=== PATIENT | female | born 1940 | race Caucasian/White ===

== ENCOUNTER 2017-05-16 09:00 | Inpatient (IN) ==
[2017-05-16] MEDS ORDERED: SODIUM CHLORIDE 0.9% 500 ML IV STA (09:52)
[2017-05-16 09:58] LABS: Basophils % 0.3 % (0.0-0.8); Eosinophils # 0.1 10*3/uL (0.0-0.87); Eosinophils % 0.7 % (0.00-10.9); Hematocrit 37.3 VOL% (35.7-47.0); Hemoglobin 11.9 GM/DL (12.0-16.0); Immature Granulocytes % 0.8 %; Immature Granulocytes Absolute 0.09 #; Lymphocytes % 8.9 % (21.3-54.2); Mean Corpuscular HGB Conc 31.9 GM/DL (32-36); Mean Corpuscular Hemoglobin 30 PG (27-34); Mean Corpuscular Volume 92.8 FL (87-102); Mean Platelet Volume 9.4 FL (9.6-12.0); Monocytes # 0.8 10*3/uL (0.11-0.8); Monocytes % 7.2 % (1.7-12.7); Neutrophils # 9.4 10*3/uL (1.4-7.4); Neutrophils % 82.1 % (38.7-73.9); Platelet Count 284 T/CUMM (130-400); Red Blood Count 4.02 MC/CUMM (3.8-5.5); Red Cell Distribution Width 13.5 % (9.3-17.3); White Blood Count 11.4 T/CUMM (4-12)
[2017-05-16 10:04] LABS: INR 1.1; PT Patient Result 11.2 SECS; Partial Thromboplastin Time 27.1 SECS (0-40)
[2017-05-16 10:10] LABS: Alanine Aminotransferase 18 U/L (13-56); Albumin 3.6 G/DL (3.4-5.0); Alkaline Phosphatase 63 U/L (45-117); Aspartate Amino Transferase 20 U/L (0-37); Bilirubin,Total < 0.39 MG/DL (0.2-1.0); Blood Urea Nitrogen 32 MG/DL (7-18); Calcium 8.5 MG/DL (8.5-10.1); Glucose 114 MG/DL (74-106); Osmolality,Calculated 277.1 MOS/KG (273-304); Potassium 3.7 MMOL/L (3.5-5.1); Sodium 135 MMOL/L (136-145); Total Protein 6.3 G/DL (6.4-8.3)
[2017-05-16 10:39] LABS: Apearance,Urine CLEAR (Clear); Bilirubin,Urine Negative (Negative); Blood, Urine Negative (Negative); Glucose,Urine (UA) Negative (Negative); Ketones,Urine Negative (Negative); Mucus,Urine Occasional /LPF (Occasional); Nitrite,Urine Negative (Negative); Protein,Urine Negative; RBC,Urine <1 /HPF (0-4); Urine Color Yellow (Yellow); Urine Specific Gravity 1.012 (1.001-1.035); Urine Urobilinogen < 2.0 EU/DL (0.2-1.0); WBC,Urine 1 /HPF (0-6)
[2017-05-16 10:45] LABS: Barbiturates Screen,Urine Negative (Negative); Benzodiazepines Screen,Urine Negative (Negative); Cannabinoid Screen,Urine Negative (Negative); Opiate Screen,Urine Positive (Negative); Phencyclidine Screen,Urine Negative (Negative)
[2017-05-16] MEDS ORDERED: ASPIRIN 300 MG SUPP RECTAL STA (10:57)
[2017-05-16] MEDS ORDERED: ASPIRIN 300 MG SUPP RECTAL ONE (11:05)
[2017-05-16] MEDS ORDERED: ZALEPLON 5 MG CAPSULE PO PRN (14:23)
[2017-05-16] MEDS: DEXTROSE 5% LACTATED RINGERS 1,000 ML IV SCH (18:59)
[2017-05-16] MEDS: ENOXAPARIN 30 MG/0.3 ML SYRINGE SUBCUT SCH (20:27)
[2017-05-17] MEDS: DEXTROSE 5% LACTATED RINGERS 1,000 ML IV SCH ×2 (05:58→16:03)
[2017-05-17 07:56] LABS: Calcium 8.2 MG/DL (8.5-10.1); Potassium 3.3 MMOL/L (3.5-5.1)
[2017-05-17] MEDS: PANTOPRAZOLE 40 MG TABLET PO SCH ×2 (08:59→20:53)
[2017-05-17] MEDS: buPROPion SR 100 MG TABLET PO SCH (08:59)
[2017-05-17] MEDS: CLOPIDOGREL 75 MG TABLET PO SCH (08:59)
[2017-05-17] MEDS ORDERED: clonazePAM 0.5 MG TABLET PO SCH ×2 (09:00)
[2017-05-17] MEDS ORDERED: ASPIRIN 325 MG TABLET PO SCH (09:00)
[2017-05-17] MEDS: VENLAFAXINE XR 75 MG CAPSULE PO SCH ×2 (09:00→20:52)
[2017-05-17] MEDS ORDERED: FERROUS SULFATE 325 MG TABLET PO SCH (09:00)
[2017-05-17] MEDS: CYANOCOBALAMIN 500 MCG TABLET PO SCH (09:00)
[2017-05-17] MEDS ORDERED: FOLIC ACID 1 MG TABLET PO SCH (09:00)
[2017-05-17] MEDS: predniSONE 10 MG TABLET PO SCH (09:38)
[2017-05-17] MEDS: predniSONE 20 MG TABLET PO SCH (09:38)
[2017-05-17] MEDS: PREGABALIN 100 MG CAPSULE PO SCH ×2 (09:38→20:52)
[2017-05-17 09:48] LABS: 25 Hydroxy Vitamin D Total 29.1 NG/ML
[2017-05-17] MEDS: FERROUS SULFATE 325 MG TABLET PO SCH (14:43)
[2017-05-17] MEDS: METHADONE 10 MG TABLET PO SCH ×2 (14:43→20:53)
[2017-05-17] MEDS: FOLIC ACID 1 MG TABLET PO SCH (14:43)
[2017-05-17] MEDS: clonazePAM 0.5 MG TABLET PO SCH ×2 (14:43→20:52)
[2017-05-17] MEDS: ENOXAPARIN 30 MG/0.3 ML SYRINGE SUBCUT SCH (20:53)
[2017-05-18] MEDS: VENLAFAXINE XR 75 MG CAPSULE PO SCH ×2 (09:27→21:44)
[2017-05-18] MEDS: METHADONE 10 MG TABLET PO SCH ×3 (09:28→21:54)
[2017-05-18] MEDS: CYANOCOBALAMIN 500 MCG TABLET PO SCH (09:28)
[2017-05-18] MEDS: CLOPIDOGREL 75 MG TABLET PO SCH (09:28)
[2017-05-18] MEDS: clonazePAM 0.5 MG TABLET PO SCH ×3 (09:28→21:44)
[2017-05-18] MEDS: predniSONE 10 MG TABLET PO SCH (09:28)
[2017-05-18] MEDS: PREGABALIN 100 MG CAPSULE PO SCH ×2 (09:28→21:44)
[2017-05-18] MEDS: buPROPion SR 100 MG TABLET PO SCH (09:28)
[2017-05-18] MEDS: PANTOPRAZOLE 40 MG TABLET PO SCH ×2 (09:28→21:44)
[2017-05-18] MEDS: FOLIC ACID 1 MG TABLET PO SCH (15:44)
[2017-05-18] MEDS: FERROUS SULFATE 325 MG TABLET PO SCH (15:44)
[2017-05-18] MEDS: ENOXAPARIN 30 MG/0.3 ML SYRINGE SUBCUT SCH (21:43)
[2017-05-19 10:18] LABS: Alanine Aminotransferase 15 U/L (13-56); Albumin 2.9 G/DL (3.4-5.0); Alkaline Phosphatase 57 U/L (45-117); Aspartate Amino Transferase 11 U/L (0-37); Bilirubin,Total < 0.39 MG/DL (0.2-1.0); Blood Urea Nitrogen 29 MG/DL (7-18); Calcium 7.8 MG/DL (8.5-10.1); Glucose 97 MG/DL (74-106); Osmolality,Calculated 286.3 MOS/KG (273-304); Potassium 3.5 MMOL/L (3.5-5.1); Sodium 141 MMOL/L (136-145); Total Protein 5.7 G/DL (6.4-8.3)
[2017-05-19] MEDS: CLOPIDOGREL 75 MG TABLET PO SCH (10:25)
[2017-05-19] MEDS: buPROPion SR 100 MG TABLET PO SCH (10:25)
[2017-05-19] MEDS: predniSONE 20 MG TABLET PO SCH (10:25)
[2017-05-19] MEDS: predniSONE 10 MG TABLET PO SCH (10:26)
[2017-05-19] MEDS: VENLAFAXINE XR 75 MG CAPSULE PO SCH ×2 (10:26→20:43)
[2017-05-19] MEDS: clonazePAM 0.5 MG TABLET PO SCH ×3 (10:26→20:43)
[2017-05-19] MEDS: CYANOCOBALAMIN 500 MCG TABLET PO SCH (10:26)
[2017-05-19] MEDS: PANTOPRAZOLE 40 MG TABLET PO SCH ×2 (10:26→20:43)
[2017-05-19] MEDS: PREGABALIN 100 MG CAPSULE PO SCH ×2 (10:26→20:42)
[2017-05-19] MEDS: METHADONE 10 MG TABLET PO SCH ×3 (10:40→20:43)
[2017-05-19] MEDS: FOLIC ACID 1 MG TABLET PO SCH (13:14)
[2017-05-19] MEDS: FERROUS SULFATE 325 MG TABLET PO SCH (13:14)
[2017-05-19] MEDS: ENOXAPARIN 30 MG/0.3 ML SYRINGE SUBCUT SCH (20:41)
[2017-05-20] MEDS: VENLAFAXINE XR 75 MG CAPSULE PO SCH ×2 (09:24→20:20)
[2017-05-20] MEDS: CLOPIDOGREL 75 MG TABLET PO SCH (09:24)
[2017-05-20] MEDS: CYANOCOBALAMIN 500 MCG TABLET PO SCH (09:24)
[2017-05-20] MEDS: clonazePAM 0.5 MG TABLET PO SCH ×3 (09:25→20:20)
[2017-05-20] MEDS: METHADONE 10 MG TABLET PO SCH ×3 (09:25→20:21)
[2017-05-20] MEDS: PANTOPRAZOLE 40 MG TABLET PO SCH ×2 (09:26→20:22)
[2017-05-20] MEDS: buPROPion SR 100 MG TABLET PO SCH (09:26)
[2017-05-20] MEDS: PREGABALIN 100 MG CAPSULE PO SCH ×2 (09:29→20:20)
[2017-05-20] MEDS: FOLIC ACID 1 MG TABLET PO SCH (14:15)
[2017-05-20] MEDS: FERROUS SULFATE 325 MG TABLET PO SCH (14:17)
[2017-05-20] MEDS ORDERED: ENOXAPARIN 40 MG/0.4 ML SYRINGE SUBCUT SCH (21:00)
[2017-05-21] MEDS: CLOPIDOGREL 75 MG TABLET PO SCH (09:26)
[2017-05-21] MEDS: PANTOPRAZOLE 40 MG TABLET PO SCH (09:26)
[2017-05-21] MEDS: clonazePAM 0.5 MG TABLET PO SCH (09:26)
[2017-05-21] MEDS: PREGABALIN 100 MG CAPSULE PO SCH (09:26)
[2017-05-21] MEDS: VENLAFAXINE XR 75 MG CAPSULE PO SCH (09:26)
[2017-05-21] MEDS: CYANOCOBALAMIN 500 MCG TABLET PO SCH (09:26)
[2017-05-21] MEDS: buPROPion SR 100 MG TABLET PO SCH (09:26)
[2017-05-21] MEDS: predniSONE 20 MG TABLET PO SCH (09:29)
[2017-05-21] MEDS: METHADONE 10 MG TABLET PO SCH (09:37)
[2017-05-21] MEDS: predniSONE 10 MG TABLET PO SCH (09:38)
[2017-05-21 12:00] VITALS: BP 136/81
== END 2017-05-21 13:25 | disposition swing bed (61) | DRG 546 ==
LOC: N.ED 09:00 → N.EDINP 12:47 → SUATTDRO 12:47 → N.EDINP 14:32 → N.5E 15:55
PROVIDERS: ADMIT Internal Medicine Cardiovascular Disease; ATTEND Internal Medicine

== ENCOUNTER 2017-07-31 15:29 | Observation (INO) ==
[2017-07-31] MEDS ORDERED: ONDANSETRON 4 MG/2 ML VIAL IV STA ×2 (16:23→19:13)
[2017-07-31] MEDS ORDERED: SODIUM CHLORIDE 0.9% 1,000 ML IV STA (16:23)
[2017-07-31] MEDS ORDERED: ONDANSETRON 4 MG/2 ML VIAL ONE ×2 (16:41→19:18)
[2017-07-31 16:44] LABS: Basophils % 0.4 % (0.0-0.8); Eosinophils % 0.5 % (0.00-10.9); Hematocrit 43.9 VOL% (35.7-47.0); Hemoglobin 14.4 GM/DL (12.0-16.0); Immature Granulocytes % 0.7 %; Immature Granulocytes Absolute 0.06 #; Lymphocytes # 0.9 10*3/uL (1.4-4.0); Lymphocytes % 10.8 % (21.3-54.2); Mean Corpuscular HGB Conc 32.8 GM/DL (32-36); Mean Corpuscular Hemoglobin 29 PG (27-34); Mean Corpuscular Volume 88.2 FL (87-102); Mean Platelet Volume 9.3 FL (9.6-12.0); Monocytes # 0.4 10*3/uL (0.11-0.8); Monocytes % 4.4 % (1.7-12.7); Neutrophils # 7.1 10*3/uL (1.4-7.4); Neutrophils % 83.2 % (38.7-73.9); Platelet Count 292 T/CUMM (130-400); Red Blood Count 4.98 MC/CUMM (3.8-5.5); Red Cell Distribution Width 14.1 % (9.3-17.3); White Blood Count 8.5 T/CUMM (4-12)
[2017-07-31 16:56] LABS: INR 1.1; PT Patient Result 11.9 SECS; Partial Thromboplastin Time 22.9 SECS (0-40)
[2017-07-31 17:01] LABS: Apearance,Urine CLEAR (Clear); Bilirubin,Urine Negative (Negative); Blood, Urine Negative (Negative); Glucose,Urine (UA) Negative (Negative); Ketones,Urine 20 mg/dL (Negative); Mucus,Urine Occasional /LPF (Occasional); Nitrite,Urine Negative (Negative); Protein,Urine 30 MG/DL; RBC,Urine 3 /HPF (0-4); Urine Color Yellow (Yellow); Urine Specific Gravity 1.023 (1.001-1.035); Urine Urobilinogen < 2.0 EU/DL (0.2-1.0); WBC,Urine 5 /HPF (0-6)
[2017-07-31 17:17] LABS: Albumin 3.7 G/DL (3.4-5.0); Bilirubin,Total 0.4 MG/DL (0.2-1.0); Osmolality,Calculated 281.5 MOS/KG (273-304); Potassium 2.8 MMOL/L (3.5-5.1); Total Protein 7.1 G/DL (6.4-8.3)
[2017-07-31 17:18] LABS: Troponin I Only 0.038 NG/ML (0.00-0.045)
[2017-07-31] MEDS ORDERED: LABETALOL 20 MG/4 ML SYRINGE IV ONE (18:18)
[2017-07-31] MEDS ORDERED: LABETALOL 20 MG/4 ML SYRINGE IV STA (18:24)
[2017-07-31] MEDS ORDERED: MORPHINE 2 MG/1 ML SYRINGE IV STA (19:09)
[2017-07-31] MEDS ORDERED: MORPHINE 2 MG/1 ML SYRINGE ONE (19:18)
[2017-07-31] MEDS ORDERED: ACETAMINOPHEN 325 MG TABLET PO PRN (20:10)
[2017-07-31] MEDS ORDERED: POTASSIUM CHLORIDE RIDER 100 ML IV ONE (20:13)
[2017-07-31] MEDS: POTASSIUM CHLORIDE RIDER 10 MEQ in PREMIX 1 EACH IV PRN (20:19)
[2017-07-31] MEDS ORDERED: ZALEPLON 5 MG CAPSULE PO PRN (20:24)
[2017-07-31] MEDS ORDERED: METHOCARBAMOL 500 MG TABLET PO PRN (20:24)
[2017-07-31] MEDS: SODIUM CHLORIDE 0.9% 1,000 ML IV SCH (21:55)
[2017-07-31] MEDS: ASPIRIN EC 81 MG TABLET PO SCH (22:37)
[2017-07-31] MEDS: VENLAFAXINE XR 75 MG CAPSULE PO SCH (22:37)
[2017-07-31] MEDS: clonazePAM 0.5 MG TABLET PO SCH ×2 (22:38→22:48)
[2017-07-31] MEDS: METHADONE 10 MG TABLET PO SCH (22:38)
[2017-08-01 05:35] LABS: Basophils % 0.5 % (0.0-0.8); Eosinophils # 0.2 10*3/uL (0.0-0.87); Eosinophils % 2.9 % (0.00-10.9); Hematocrit 36.6 VOL% (35.7-47.0); Hemoglobin 12.1 GM/DL (12.0-16.0); Immature Granulocytes % 0.5 %; Immature Granulocytes Absolute 0.04 #; Lymphocytes % 13.4 % (21.3-54.2); Mean Corpuscular HGB Conc 33.1 GM/DL (32-36); Mean Corpuscular Hemoglobin 30 PG (27-34); Mean Corpuscular Volume 89.3 FL (87-102); Mean Platelet Volume 9.8 FL (9.6-12.0); Monocytes # 0.6 10*3/uL (0.11-0.8); Monocytes % 7.8 % (1.7-12.7); Neutrophils # 5.8 10*3/uL (1.4-7.4); Neutrophils % 74.9 % (38.7-73.9); Platelet Count 252 T/CUMM (130-400); Red Cell Distribution Width 14.4 % (9.3-17.3); White Blood Count 7.7 T/CUMM (4-12)
[2017-08-01 06:12] LABS: Calcium 7.4 MG/DL (8.5-10.1); Osmolality,Calculated 284.3 MOS/KG (273-304)
[2017-08-01] MEDS ORDERED: POTASSIUM CHLORIDE 20 MEQ TABLET PO PRN (06:31)
[2017-08-01] MEDS: SODIUM CHLORIDE 0.9% 1,000 ML IV SCH ×2 (07:00→20:00)
[2017-08-01] MEDS ORDERED: HEPARIN LOCK FLUSH 500 UNIT/5 ML SYRINGE IV PRN (07:55)
[2017-08-01] MEDS: ENOXAPARIN 40 MG/0.4 ML SYRINGE SUBCUT SCH (08:37)
[2017-08-01] MEDS: VENLAFAXINE XR 75 MG CAPSULE PO SCH ×2 (08:38→20:58)
[2017-08-01] MEDS: PANTOPRAZOLE 40 MG VIAL IV SCH (08:38)
[2017-08-01] MEDS: clonazePAM 0.5 MG TABLET PO SCH ×3 (08:38→21:00)
[2017-08-01] MEDS: HEPARIN LOCK FLUSH 500 UNIT/5 ML SYRINGE IV SCH (08:39)
[2017-08-01] MEDS: METHADONE 10 MG TABLET PO SCH ×2 (08:39→20:59)
[2017-08-01] MEDS ORDERED: predniSONE 10 MG TABLET PO SCH (09:00)
[2017-08-01] MEDS: POTASSIUM CHLORIDE RIDER 10 MEQ in PREMIX 1 EACH IV PRN (09:29)
[2017-08-01] MEDS: POTASSIUM CHLORIDE RIDER 20 MEQ in PREMIX 1 EACH IV PRN ×2 (10:27→14:28)
[2017-08-01] MEDS: ONDANSETRON 4 MG/2 ML VIAL IV PRN ×2 (12:55→21:48)
[2017-08-01] MEDS: FERROUS SULFATE 325 MG TABLET PO SCH (14:25)
[2017-08-01] MEDS: FOLIC ACID 1 MG TABLET PO SCH (14:25)
[2017-08-01] MEDS: ASPIRIN EC 81 MG TABLET PO SCH (20:57)
[2017-08-02] MEDS: HEPARIN LOCK FLUSH 500 UNIT/5 ML SYRINGE IV SCH ×2 (00:57→09:14)
[2017-08-02] MEDS: SODIUM CHLORIDE 0.9% 1,000 ML IV SCH (04:00)
[2017-08-02] MEDS: ONDANSETRON 4 MG/2 ML VIAL IV PRN (06:50)
[2017-08-02] MEDS ORDERED: predniSONE 20 MG TABLET PO SCH (09:00)
[2017-08-02] MEDS ORDERED: METOPROLOL TARTRATE 25 MG TABLET PO SCH (09:00)
[2017-08-02] MEDS: clonazePAM 0.5 MG TABLET PO SCH (09:12)
[2017-08-02] MEDS: VENLAFAXINE XR 75 MG CAPSULE PO SCH (09:12)
[2017-08-02] MEDS: METHADONE 10 MG TABLET PO SCH (09:14)
[2017-08-02] MEDS: ENOXAPARIN 40 MG/0.4 ML SYRINGE SUBCUT SCH (09:14)
[2017-08-02] MEDS: PANTOPRAZOLE 40 MG VIAL IV SCH (09:14)
[2017-08-02] MEDS ORDERED: POLYVINYL ALCOHOL 1.4% OPH SOLN 15 ML BOTTLE BOTH EYES PRN (10:37)
[2017-08-02 11:41] VITALS: BP 169/91
[2017-08-02] MEDS: FOLIC ACID 1 MG TABLET PO SCH (13:18)
[2017-08-02] MEDS: FERROUS SULFATE 325 MG TABLET PO SCH (13:18)
== END 2017-08-02 13:23 | disposition home or self-care (01) ==
LOC: EDBD → EDUNIT# → N.EDINP 15:29 → N.ED 15:29 → N.2E 21:26
PROVIDERS: ADMIT Internal Medicine; ATTEND Internal Medicine

== ENCOUNTER 2017-09-25 14:45 | Inpatient (IN) ==
[2017-09-25] MEDS ORDERED: ADENOSINE 6 MG/2 ML VIAL ONE (15:05)
[2017-09-25] MEDS ORDERED: ADENOSINE 6 MG/2 ML VIAL IV STA (15:07)
[2017-09-25 15:26] LABS: Basophils % 0.4 % (0.0-0.8); Eosinophils % 0.2 % (0.00-10.9); Hematocrit 38.3 VOL% (35.7-47.0); Hemoglobin 12.5 GM/DL (12.0-16.0); Immature Granulocytes % 0.5 %; Immature Granulocytes Absolute 0.05 #; Lymphocytes # 1.3 10*3/uL (1.4-4.0); Lymphocytes % 12.9 % (21.3-54.2); Mean Corpuscular HGB Conc 32.6 GM/DL (32-36); Mean Corpuscular Hemoglobin 30 PG (27-34); Mean Corpuscular Volume 92.7 FL (87-102); Mean Platelet Volume 9.6 FL (9.6-12.0); Monocytes # 0.5 10*3/uL (0.11-0.8); Monocytes % 4.9 % (1.7-12.7); Neutrophils # 7.9 10*3/uL (1.4-7.4); Neutrophils % 81.1 % (38.7-73.9); Platelet Count 298 T/CUMM (130-400); Red Blood Count 4.13 MC/CUMM (3.8-5.5); Red Cell Distribution Width 14.9 % (9.3-17.3); White Blood Count 9.7 T/CUMM (4-12)
[2017-09-25] MEDS ORDERED: METOPROLOL TARTRATE 5 MG/5 ML VIAL IV ONE ×2 (15:26→15:30)
[2017-09-25] MEDS ORDERED: DILTIAZEM 100 MG VIAL.ADD IV ONE (15:33)
[2017-09-25] MEDS ORDERED: SODIUM CHLORIDE 0.9% 100 ML IV ONE (15:34)
[2017-09-25] MEDS ORDERED: METOPROLOL TARTRATE 5 MG/5 ML VIAL IV STA ×2 (15:47)
[2017-09-25] MEDS ORDERED: DILTIAZEM 50 MG/10 ML VIAL IV STA (15:48)
[2017-09-25 15:51] LABS: Alanine Aminotransferase 33 U/L (13-56); Albumin 3.5 G/DL (3.4-5.0); Alkaline Phosphatase 73 U/L (45-117); Aspartate Amino Transferase 23 U/L (0-37); Bilirubin,Total < 0.39 MG/DL (0.2-1.0); Blood Urea Nitrogen 41 MG/DL (7-18); Glucose 92 MG/DL (74-106); Osmolality,Calculated 284.7 MOS/KG (273-304); Potassium 4.7 MMOL/L (3.5-5.1); Sodium 138 MMOL/L (136-145); Total Protein 6.7 G/DL (6.4-8.3)
[2017-09-25] MEDS: DILTIAZEM INJ 100 MG in SODIUM CHLORIDE 0.9% 100 ML IV SCH ×2 (15:54→22:34)
[2017-09-25] MEDS ORDERED: MAGNESIUM SULF RIDER 2 GM in PREMIX 1 EACH IV PRN (16:04)
[2017-09-25] MEDS ORDERED: ACETAMINOPHEN 325 MG TABLET PO PRN (16:04)
[2017-09-25] MEDS ORDERED: DOCUSATE SODIUM 100 MG CAPSULE PO PRN (16:04)
[2017-09-25] MEDS ORDERED: MORPHINE 4 MG/1 ML VIAL IV PRN (16:04)
[2017-09-25] MEDS ORDERED: ZALEPLON 5 MG CAPSULE PO PRN ×2 (16:04→16:09)
[2017-09-25] MEDS ORDERED: MAGNESIUM SULF RIDER 4 GM in PREMIX 1 EACH IV PRN (16:04)
[2017-09-25] MEDS ORDERED: ONDANSETRON 4 MG/2 ML VIAL IV PRN (16:04)
[2017-09-25] MEDS ORDERED: POLYVINYL ALCOHOL 1.4% OPH SOLN 15 ML BOTTLE BOTH EYES PRN (16:09)
[2017-09-25] MEDS ORDERED: METHOCARBAMOL 500 MG TABLET PO PRN (16:09)
[2017-09-25] MEDS ORDERED: ONDANSETRON 4 MG TABLET PO PRN (16:09)
[2017-09-25] MEDS ORDERED: DENOSUMAB 60 MG SUBCUT SCH (16:15)
[2017-09-25 16:29] LABS: Apearance,Urine CLEAR (Clear); Bilirubin,Urine Negative (Negative); Blood, Urine Negative (Negative); Glucose,Urine (UA) Negative (Negative); Hyaline Casts,Urine 2 /LPF (0-3); Ketones,Urine Negative (Negative); Mucus,Urine Occasional /LPF (Occasional); Nitrite,Urine Negative (Negative); Protein,Urine Negative; RBC,Urine <1 /HPF (0-4); Urine Color Yellow (Yellow); Urine Specific Gravity 1.018 (1.001-1.035); Urine Urobilinogen < 2.0 EU/DL (0.2-1.0); WBC,Urine 1 /HPF (0-6)
[2017-09-25] MEDS: predniSONE 10 MG TABLET PO SCH (18:44)
[2017-09-25] MEDS: SODIUM CHLORIDE 0.45% 1,000 ML IV SCH (18:58)
[2017-09-25] MEDS ORDERED: NON-FORMULARY MEDICATION (Omeprazole [Prilosec] 20 MG) PO SCH (21:00)
[2017-09-25] MEDS: clonazePAM 0.5 MG TABLET PO SCH (21:20)
[2017-09-25] MEDS: POLYETHYLENE GLYCOL POWDER 17 GM PACK PO PRN (21:20)
[2017-09-25] MEDS: VENLAFAXINE XR 75 MG CAPSULE PO SCH (21:21)
[2017-09-25] MEDS: PREGABALIN 100 MG CAPSULE PO SCH (21:21)
[2017-09-25] MEDS: DOCUSATE SODIUM 100 MG CAPSULE PO SCH (21:21)
[2017-09-26 05:11] LABS: Basophils # 0.1 10*3/uL (0.0-0.2); Basophils % 0.5 % (0.0-0.8); Eosinophils % 0.3 % (0.00-10.9); Hematocrit 34.7 VOL% (35.7-47.0); Hemoglobin 11.4 GM/DL (12.0-16.0); Immature Granulocytes % 1.5 %; Immature Granulocytes Absolute 0.17 #; Lymphocytes # 1.6 10*3/uL (1.4-4.0); Lymphocytes % 14.2 % (21.3-54.2); Mean Corpuscular HGB Conc 32.9 GM/DL (32-36); Mean Corpuscular Hemoglobin 30 PG (27-34); Mean Corpuscular Volume 92.3 FL (87-102); Mean Platelet Volume 9.9 FL (9.6-12.0); Monocytes # 0.6 10*3/uL (0.11-0.8); Monocytes % 5.4 % (1.7-12.7); NRBC # 0.03 10*3/uL; Neutrophils # 8.7 10*3/uL (1.4-7.4); Neutrophils % 78.1 % (38.7-73.9); Platelet Count 299 T/CUMM (130-400); Red Blood Count 3.76 MC/CUMM (3.8-5.5); White Blood Count 11.1 T/CUMM (4-12)
[2017-09-26 05:41] LABS: Alanine Aminotransferase 34 U/L (13-56); Albumin 3.2 G/DL (3.4-5.0); Alkaline Phosphatase 66 U/L (45-117); Aspartate Amino Transferase 16 U/L (0-37); Bilirubin,Total < 0.39 MG/DL (0.2-1.0); Blood Urea Nitrogen 39 MG/DL (7-18); Calcium 7.9 MG/DL (8.5-10.1); Cholesterol 214 MG/DL (50-200); Glucose 101 MG/DL (74-106); HDL Cholesterol 60 MG/DL (40-60); Osmolality,Calculated 285.5 MOS/KG (273-304); Potassium 4.7 MMOL/L (3.5-5.1); Risk Ratio 3.57; Sodium 139 MMOL/L (136-145); Triglycerides 166 MG/DL (2-150); VLDL CHOLESTEROL 33.2 MG/DL
[2017-09-26] MEDS: SODIUM CHLORIDE 0.45% 1,000 ML IV SCH (06:20)
[2017-09-26] MEDS: PANTOPRAZOLE 40 MG TABLET PO SCH (08:38)
[2017-09-26] MEDS: PREGABALIN 100 MG CAPSULE PO SCH ×2 (08:39→22:01)
[2017-09-26] MEDS: ASPIRIN EC 81 MG TABLET PO SCH (08:43)
[2017-09-26] MEDS: CYANOCOBALAMIN 500 MCG TABLET PO SCH (08:43)
[2017-09-26] MEDS: clonazePAM 0.5 MG TABLET PO SCH ×3 (08:43→22:00)
[2017-09-26] MEDS: CHOLECALCIFEROL 1,000 UNIT TABLET PO SCH (08:43)
[2017-09-26] MEDS: VENLAFAXINE XR 75 MG CAPSULE PO SCH ×2 (08:43→22:00)
[2017-09-26] MEDS: DILTIAZEM 30 MG TABLET PO SCH ×2 (08:44→12:26)
[2017-09-26] MEDS: predniSONE 20 MG TABLET PO SCH (08:44)
[2017-09-26] MEDS: SOTALOL 80 MG TABLET PO SCH ×2 (08:44→21:59)
[2017-09-26] MEDS: FERROUS SULFATE 325 MG TABLET PO SCH (14:34)
[2017-09-26] MEDS: FOLIC ACID 1 MG TABLET PO SCH (14:34)
[2017-09-26] MEDS: DOCUSATE SODIUM 100 MG CAPSULE PO SCH (22:01)
[2017-09-26] MEDS: POLYETHYLENE GLYCOL POWDER 17 GM PACK PO PRN (22:10)
[2017-09-27] MEDS ORDERED: MIDAZOLAM 10 MG/2 ML VIAL ONE (09:13)
[2017-09-27] MEDS ORDERED: NALOXONE 0.4 MG/ML VIAL ONE (09:13)
[2017-09-27] MEDS ORDERED: MEPERIDINE 50 MG/1 ML VIAL ONE (09:14)
[2017-09-27] MEDS: clonazePAM 0.5 MG TABLET PO SCH ×3 (11:02→21:58)
[2017-09-27] MEDS: PREGABALIN 100 MG CAPSULE PO SCH ×2 (11:02→21:58)
[2017-09-27] MEDS: PANTOPRAZOLE 40 MG TABLET PO SCH (11:02)
[2017-09-27] MEDS: predniSONE 10 MG TABLET PO SCH (11:02)
[2017-09-27] MEDS: CYANOCOBALAMIN 500 MCG TABLET PO SCH (11:02)
[2017-09-27] MEDS: VENLAFAXINE XR 75 MG CAPSULE PO SCH ×3 (11:03→21:59)
[2017-09-27] MEDS: SOTALOL 80 MG TABLET PO SCH ×3 (11:03→21:58)
[2017-09-27] MEDS: ASPIRIN EC 81 MG TABLET PO SCH ×2 (11:03→12:05)
[2017-09-27] MEDS: CHOLECALCIFEROL 1,000 UNIT TABLET PO SCH (11:03)
[2017-09-27] MEDS: FOLIC ACID 1 MG TABLET PO SCH (14:15)
[2017-09-27] MEDS: FERROUS SULFATE 325 MG TABLET PO SCH (15:41)
[2017-09-27] MEDS: SODIUM CHLORIDE 0.45% 1,000 ML IV SCH (16:03)
[2017-09-27] MEDS: DOCUSATE SODIUM 100 MG CAPSULE PO SCH (21:59)
[2017-09-27] MEDS: APIXABAN 2.5 MG TABLET PO SCH (21:59)
[2017-09-27] MEDS: POLYETHYLENE GLYCOL POWDER 17 GM PACK PO PRN (22:11)
[2017-09-28] MEDS: SODIUM CHLORIDE 0.45% 1,000 ML IV SCH ×2 (00:50→02:00)
[2017-09-28 05:50] LABS: Basophils # 0.1 10*3/uL (0.0-0.2); Basophils % 0.8 % (0.0-0.8); Eosinophils # 0.5 10*3/uL (0.0-0.87); Eosinophils % 7.4 % (0.00-10.9); Hematocrit 29.8 VOL% (35.7-47.0); Hemoglobin 9.7 GM/DL (12.0-16.0); Immature Granulocytes % 0.6 %; Immature Granulocytes Absolute 0.04 #; Lymphocytes # 1.6 10*3/uL (1.4-4.0); Lymphocytes % 25.8 % (21.3-54.2); Mean Corpuscular HGB Conc 32.6 GM/DL (32-36); Mean Corpuscular Hemoglobin 31 PG (27-34); Mean Platelet Volume 9.9 FL (9.6-12.0); Monocytes # 0.5 10*3/uL (0.11-0.8); Monocytes % 7.1 % (1.7-12.7); Neutrophils # 3.7 10*3/uL (1.4-7.4); Neutrophils % 58.3 % (38.7-73.9); Platelet Count 224 T/CUMM (130-400); Red Blood Count 3.17 MC/CUMM (3.8-5.5); Red Cell Distribution Width 15.3 % (9.3-17.3); White Blood Count 6.4 T/CUMM (4-12)
[2017-09-28 06:11] LABS: Calcium 8.1 MG/DL (8.5-10.1); Osmolality,Calculated 289.4 MOS/KG (273-304); Potassium 4.7 MMOL/L (3.5-5.1)
[2017-09-28] MEDS: clonazePAM 0.5 MG TABLET PO SCH ×3 (09:17→20:54)
[2017-09-28] MEDS: PANTOPRAZOLE 40 MG TABLET PO SCH (09:17)
[2017-09-28] MEDS: VENLAFAXINE XR 75 MG CAPSULE PO SCH ×2 (09:17→20:54)
[2017-09-28] MEDS: CHOLECALCIFEROL 1,000 UNIT TABLET PO SCH (09:17)
[2017-09-28] MEDS: CYANOCOBALAMIN 500 MCG TABLET PO SCH (09:17)
[2017-09-28] MEDS: SOTALOL 80 MG TABLET PO SCH ×2 (09:18→20:53)
[2017-09-28] MEDS: PREGABALIN 100 MG CAPSULE PO SCH ×2 (09:18→20:54)
[2017-09-28] MEDS: ASPIRIN EC 81 MG TABLET PO SCH (09:20)
[2017-09-28] MEDS: APIXABAN 2.5 MG TABLET PO SCH ×2 (09:21→20:54)
[2017-09-28] MEDS: predniSONE 20 MG TABLET PO SCH (09:35)
[2017-09-28] MEDS: FERROUS SULFATE 325 MG TABLET PO SCH (13:59)
[2017-09-28] MEDS: FOLIC ACID 1 MG TABLET PO SCH (13:59)
[2017-09-28] MEDS: DOCUSATE SODIUM 100 MG CAPSULE PO SCH (20:54)
[2017-09-28] MEDS: POLYETHYLENE GLYCOL POWDER 17 GM PACK PO PRN (21:13)
[2017-09-29 04:21] LABS: Basophils % 0.3 % (0.0-0.8); Eosinophils # 0.2 10*3/uL (0.0-0.87); Eosinophils % 3.3 % (0.00-10.9); Hematocrit 31.5 VOL% (35.7-47.0); Immature Granulocytes % 0.9 %; Immature Granulocytes Absolute 0.07 #; Lymphocytes # 1.7 10*3/uL (1.4-4.0); Lymphocytes % 23.4 % (21.3-54.2); Mean Corpuscular HGB Conc 31.7 GM/DL (32-36); Mean Corpuscular Hemoglobin 30 PG (27-34); Mean Corpuscular Volume 93.8 FL (87-102); Mean Platelet Volume 9.8 FL (9.6-12.0); Monocytes # 0.5 10*3/uL (0.11-0.8); Monocytes % 6.9 % (1.7-12.7); Neutrophils # 4.8 10*3/uL (1.4-7.4); Neutrophils % 65.2 % (38.7-73.9); Platelet Count 223 T/CUMM (130-400); Red Blood Count 3.36 MC/CUMM (3.8-5.5); Red Cell Distribution Width 14.6 % (9.3-17.3); White Blood Count 7.4 T/CUMM (4-12)
[2017-09-29 04:37] LABS: Calcium 8.7 MG/DL (8.5-10.1); Osmolality,Calculated 290.1 MOS/KG (273-304); Potassium 4.4 MMOL/L (3.5-5.1)
[2017-09-29] MEDS: CYANOCOBALAMIN 500 MCG TABLET PO SCH (09:24)
[2017-09-29] MEDS: APIXABAN 2.5 MG TABLET PO SCH (09:24)
[2017-09-29] MEDS: clonazePAM 0.5 MG TABLET PO SCH (09:25)
[2017-09-29] MEDS: CHOLECALCIFEROL 1,000 UNIT TABLET PO SCH (09:25)
[2017-09-29] MEDS: ASPIRIN EC 81 MG TABLET PO SCH (09:26)
[2017-09-29] MEDS: PANTOPRAZOLE 40 MG TABLET PO SCH (09:27)
[2017-09-29] MEDS: VENLAFAXINE XR 75 MG CAPSULE PO SCH (09:27)
[2017-09-29] MEDS: SOTALOL 80 MG TABLET PO SCH (09:27)
[2017-09-29] MEDS: PREGABALIN 100 MG CAPSULE PO SCH (09:27)
[2017-09-29 09:58] VITALS: BP 131/70
[2017-09-29] MEDS ORDERED: ASPIRIN EC 81 MG TABLET PO SCH (12:40)
[2017-10-19] MEDS ORDERED: CYANOCOBALAMIN 1000 MCG/1 ML VIAL IM SCH (09:00)
== END 2017-09-29 15:30 | disposition home or self-care (01) | DRG 310 ==
LOC: N.EDINP 14:45 → N.ED 14:45 → N.TELEN 16:54
PROVIDERS: ADMIT Internal Medicine Cardiovascular Disease; ATTEND Internal Medicine Cardiovascular Disease

== ENCOUNTER 2017-10-07 20:29 | Inpatient (IN) ==
[2017-10-07 22:37] LABS: Basophils # 0.1 10*3/uL (0.0-0.2); Basophils % 0.7 % (0.0-0.8); Eosinophils # 0.5 10*3/uL (0.0-0.87); Eosinophils % 6.2 % (0.00-10.9); Hemoglobin 10.7 GM/DL (12.0-16.0); Immature Granulocytes % 0.8 %; Immature Granulocytes Absolute 0.06 #; Lymphocytes # 1.9 10*3/uL (1.4-4.0); Lymphocytes % 25.6 % (21.3-54.2); Mean Corpuscular HGB Conc 32.4 GM/DL (32-36); Mean Corpuscular Hemoglobin 31 PG (27-34); Mean Platelet Volume 9.2 FL (9.6-12.0); Monocytes # 0.6 10*3/uL (0.11-0.8); Monocytes % 8.6 % (1.7-12.7); Neutrophils # 4.2 10*3/uL (1.4-7.4); Neutrophils % 58.1 % (38.7-73.9); Platelet Count 229 T/CUMM (130-400); Red Blood Count 3.51 MC/CUMM (3.8-5.5); White Blood Count 7.2 T/CUMM (4-12)
[2017-10-07 22:43] LABS: Apearance,Urine CLEAR (Clear); Bilirubin,Urine Negative (Negative); Blood, Urine Negative (Negative); Glucose,Urine (UA) Negative (Negative); Ketones,Urine Negative (Negative); Nitrite,Urine Negative (Negative); Protein,Urine Negative; Urine Color Yellow (Yellow); Urine Specific Gravity 1.009 (1.001-1.035); Urine Urobilinogen < 2.0 EU/DL (0.2-1.0); WBC,Urine 1 /HPF (0-6)
[2017-10-07 22:47] LABS: PT Patient Result 10.7 SECS; Partial Thromboplastin Time 27.1 SECS (0-40)
[2017-10-07 22:50] LABS: Barbiturates Screen,Urine Negative (Negative); Benzodiazepines Screen,Urine Negative (Negative); Cannabinoid Screen,Urine Negative (Negative); Opiate Screen,Urine Positive (Negative); Phencyclidine Screen,Urine Negative (Negative)
[2017-10-07 22:58] LABS: Alanine Aminotransferase 19 U/L (13-56); Albumin 3.1 G/DL (3.4-5.0); Alkaline Phosphatase 66 U/L (45-117); Aspartate Amino Transferase 13 U/L (0-37); Bilirubin,Total < 0.39 MG/DL (0.2-1.0); Blood Urea Nitrogen 31 MG/DL (7-18); Calcium 8.4 MG/DL (8.5-10.1); Glucose 79 MG/DL (74-106); Osmolality,Calculated 282.5 MOS/KG (273-304); Sodium 139 MMOL/L (136-145); Total Protein 6.1 G/DL (6.4-8.3); Troponin I Only < 0.015 NG/ML (0.00-0.045)
[2017-10-08] MEDS ORDERED: ACETAMINOPHEN 325 MG TABLET PO PRN (01:24)
[2017-10-08] MEDS ORDERED: ONDANSETRON 4 MG/2 ML VIAL IV PRN (01:24)
[2017-10-08] MEDS ORDERED: POLYVINYL ALCOHOL 1.4% OPH SOLN 15 ML BOTTLE BOTH EYES PRN (01:28)
[2017-10-08] MEDS ORDERED: ONDANSETRON 4 MG TABLET PO PRN (01:28)
[2017-10-08 04:51] LABS: Basophils # 0.1 10*3/uL (0.0-0.2); Basophils % 0.8 % (0.0-0.8); Eosinophils # 0.4 10*3/uL (0.0-0.87); Eosinophils % 5.5 % (0.00-10.9); Hematocrit 31.4 VOL% (35.7-47.0); Hemoglobin 10.7 GM/DL (12.0-16.0); Immature Granulocytes % 0.8 %; Immature Granulocytes Absolute 0.06 #; Lymphocytes # 1.3 10*3/uL (1.4-4.0); Lymphocytes % 17.1 % (21.3-54.2); Mean Corpuscular HGB Conc 34.1 GM/DL (32-36); Mean Corpuscular Hemoglobin 31 PG (27-34); Mean Corpuscular Volume 91.3 FL (87-102); Mean Platelet Volume 9.4 FL (9.6-12.0); Monocytes # 0.6 10*3/uL (0.11-0.8); Monocytes % 7.1 % (1.7-12.7); Neutrophils # 5.4 10*3/uL (1.4-7.4); Neutrophils % 68.7 % (38.7-73.9); Platelet Count 217 T/CUMM (130-400); Red Blood Count 3.44 MC/CUMM (3.8-5.5); Red Cell Distribution Width 15.1 % (9.3-17.3); White Blood Count 7.8 T/CUMM (4-12)
[2017-10-08 05:27] LABS: Calcium 8.3 MG/DL (8.5-10.1); Osmolality,Calculated 283.4 MOS/KG (273-304); Potassium 3.8 MMOL/L (3.5-5.1); Risk Ratio 4.22; VLDL CHOLESTEROL 38.8 MG/DL
[2017-10-08] MEDS ORDERED: predniSONE 20 MG TABLET PO SCH (09:00)
[2017-10-08] MEDS: ASPIRIN EC 81 MG TABLET PO SCH (09:25)
[2017-10-08] MEDS: PREGABALIN 100 MG CAPSULE PO SCH ×2 (09:25→20:57)
[2017-10-08] MEDS: CYANOCOBALAMIN 500 MCG TABLET PO SCH (09:26)
[2017-10-08] MEDS: clonazePAM 0.5 MG TABLET PO SCH ×3 (09:26→20:56)
[2017-10-08] MEDS: CHOLECALCIFEROL 1,000 UNIT TABLET PO SCH (09:26)
[2017-10-08] MEDS: SOTALOL 80 MG TABLET PO SCH ×2 (09:26→20:57)
[2017-10-08] MEDS: APIXABAN 2.5 MG TABLET PO SCH ×2 (09:27→20:57)
[2017-10-08] MEDS: PANTOPRAZOLE 40 MG TABLET PO SCH ×2 (09:27→20:57)
[2017-10-08] MEDS: VENLAFAXINE XR 75 MG CAPSULE PO SCH ×2 (09:38→20:57)
[2017-10-08] MEDS: FOLIC ACID 1 MG TABLET PO SCH (14:30)
[2017-10-08] MEDS: FERROUS SULFATE 325 MG TABLET PO SCH (14:30)
[2017-10-08] MEDS: POLYETHYLENE GLYCOL POWDER 17 GM PACK PO SCH (20:56)
[2017-10-08] MEDS ORDERED: DOCUSATE SODIUM 100 MG CAPSULE PO SCH (21:00)
[2017-10-09] MEDS ORDERED: predniSONE 10 MG TABLET PO SCH (09:00)
[2017-10-09] MEDS: clonazePAM 0.5 MG TABLET PO SCH ×2 (09:10→14:22)
[2017-10-09] MEDS: VENLAFAXINE XR 75 MG CAPSULE PO SCH (09:10)
[2017-10-09] MEDS: APIXABAN 2.5 MG TABLET PO SCH (09:10)
[2017-10-09] MEDS: PREGABALIN 100 MG CAPSULE PO SCH (09:10)
[2017-10-09] MEDS: ASPIRIN EC 81 MG TABLET PO SCH (09:10)
[2017-10-09] MEDS: SOTALOL 80 MG TABLET PO SCH (09:10)
[2017-10-09] MEDS: PANTOPRAZOLE 40 MG TABLET PO SCH (09:11)
[2017-10-09] MEDS: CYANOCOBALAMIN 500 MCG TABLET PO SCH (09:11)
[2017-10-09] MEDS: POLYETHYLENE GLYCOL POWDER 17 GM PACK PO SCH (09:11)
[2017-10-09] MEDS: CHOLECALCIFEROL 1,000 UNIT TABLET PO SCH (09:11)
[2017-10-09] MEDS: FERROUS SULFATE 325 MG TABLET PO SCH (14:22)
[2017-10-09] MEDS: FOLIC ACID 1 MG TABLET PO SCH (14:22)
[2017-10-09 16:05] VITALS: BP 145/81
[2017-10-19] MEDS ORDERED: DENOSUMAB 60 MG/ML SYRINGE SUBCUT SCH (09:00)
[2017-10-19] MEDS ORDERED: CYANOCOBALAMIN 1000 MCG/1 ML VIAL IM SCH (09:00)
== END 2017-10-09 16:29 | disposition home or self-care (01) | DRG 69 ==
LOC: N.ED 20:29 → N.EDINP 10-08 00:11 → N.TELEN 10-08 00:45
PROVIDERS: ADMIT Internal Medicine; ATTEND Internal Medicine

== ENCOUNTER 2017-10-14 11:20 | Inpatient (IN) ==
[2017-10-14] MEDS ORDERED: ALBUTEROL/IPRATROPIUM 3 ML NEB RESP TX STA (11:43)
[2017-10-14 11:58] LABS: Basophils % 0.4 % (0.0-0.8); Eosinophils # 0.2 10*3/uL (0.0-0.87); Eosinophils % 2.3 % (0.00-10.9); Hematocrit 40.1 VOL% (35.7-47.0); Hemoglobin 13.1 GM/DL (12.0-16.0); Immature Granulocytes % 0.5 %; Immature Granulocytes Absolute 0.05 #; Lymphocytes # 1.3 10*3/uL (1.4-4.0); Lymphocytes % 12.8 % (21.3-54.2); Mean Corpuscular HGB Conc 32.7 GM/DL (32-36); Mean Corpuscular Hemoglobin 31 PG (27-34); Mean Corpuscular Volume 93.3 FL (87-102); Mean Platelet Volume 9.6 FL (9.6-12.0); Monocytes # 0.4 10*3/uL (0.11-0.8); Monocytes % 3.7 % (1.7-12.7); Neutrophils # 7.9 10*3/uL (1.4-7.4); Neutrophils % 80.3 % (38.7-73.9); Platelet Count 291 T/CUMM (130-400); Red Cell Distribution Width 14.7 % (9.3-17.3); White Blood Count 9.8 T/CUMM (4-12)
[2017-10-14 12:10] LABS: PT Patient Result 10.5 SECS; Partial Thromboplastin Time 24.1 SECS (0-40)
[2017-10-14 12:32] LABS: Alanine Aminotransferase 23 U/L (13-56); Albumin 3.6 G/DL (3.4-5.0); Alkaline Phosphatase 89 U/L (45-117); Aspartate Amino Transferase 15 U/L (0-37); Bilirubin,Total < 0.39 MG/DL (0.2-1.0); Blood Urea Nitrogen 28 MG/DL (7-18); Calcium 9.3 MG/DL (8.5-10.1); Glucose 95 MG/DL (74-106); Osmolality,Calculated 280.7 MOS/KG (273-304); Potassium 4.3 MMOL/L (3.5-5.1); Sodium 138 MMOL/L (136-145); Total Protein 7.6 G/DL (6.4-8.3); Troponin I Only < 0.015 NG/ML (0.00-0.045)
[2017-10-14 13:00] LABS: Apearance,Urine CLEAR (Clear); Bilirubin,Urine Negative (Negative); Blood, Urine Negative (Negative); Glucose,Urine (UA) Negative (Negative); Ketones,Urine Negative (Negative); Mucus,Urine Occasional /LPF (Occasional); Nitrite,Urine Negative (Negative); Protein,Urine Negative; RBC,Urine <1 /HPF (0-4); Urine Color Yellow (Yellow); Urine Specific Gravity 1.013 (1.001-1.035); Urine Urobilinogen < 2.0 EU/DL (0.2-1.0); WBC,Urine 1 /HPF (0-6)
[2017-10-14] MEDS ORDERED: LEVOFLOXACIN INJ 750 MG in PREMIX 1 EACH IV STA (15:18)
[2017-10-14] MEDS ORDERED: METHOCARBAMOL 500 MG TABLET PO PRN (15:19)
[2017-10-14] MEDS ORDERED: POLYVINYL ALCOHOL 1.4% OPH SOLN 15 ML BOTTLE BOTH EYES PRN (15:19)
[2017-10-14] MEDS ORDERED: ALBUTEROL 2.5 MG/3 ML NEB RESP TX PRN (15:22)
[2017-10-14] MEDS ORDERED: methylPREDNISolone SOD SUC 125 MG/2 ML VIAL IV STA (15:22)
[2017-10-14] MEDS: SODIUM CHLORIDE 0.9% 1,000 ML IV SCH (15:38)
[2017-10-14] MEDS ORDERED: amLODIPine 5 MG TABLET PO ONE (17:11)
[2017-10-14] MEDS: predniSONE 10 MG TABLET PO SCH (17:19)
[2017-10-14] MEDS: ALBUTEROL 2.5 MG/3 ML NEB RESP TX SCH (20:00)
[2017-10-14] MEDS: clonazePAM 0.5 MG TABLET PO SCH (20:57)
[2017-10-14] MEDS: SOTALOL 80 MG TABLET PO SCH (20:57)
[2017-10-14] MEDS: DOCUSATE SODIUM 100 MG CAPSULE PO SCH (20:57)
[2017-10-14] MEDS: ASPIRIN EC 81 MG TABLET PO SCH (20:57)
[2017-10-14] MEDS: PREGABALIN 100 MG CAPSULE PO SCH (21:06)
[2017-10-14] MEDS: VENLAFAXINE XR 75 MG CAPSULE PO SCH (21:06)
[2017-10-14] MEDS: PANTOPRAZOLE 40 MG TABLET PO SCH (21:07)
[2017-10-14] MEDS: APIXABAN 2.5 MG TABLET PO SCH (21:07)
[2017-10-15] MEDS: ALBUTEROL 2.5 MG/3 ML NEB RESP TX SCH ×4 (00:39→19:17)
[2017-10-15] MEDS: SODIUM CHLORIDE 0.9% 1,000 ML IV SCH ×3 (04:54→22:21)
[2017-10-15 05:04] LABS: Basophils % 0.2 % (0.0-0.8); Hematocrit 40.1 VOL% (35.7-47.0); Hemoglobin 13.6 GM/DL (12.0-16.0); Immature Granulocytes % 0.4 %; Immature Granulocytes Absolute 0.04 #; Lymphocytes # 1.1 10*3/uL (1.4-4.0); Lymphocytes % 12.7 % (21.3-54.2); Mean Corpuscular HGB Conc 33.9 GM/DL (32-36); Mean Corpuscular Hemoglobin 31 PG (27-34); Mean Corpuscular Volume 90.3 FL (87-102); Mean Platelet Volume 9.6 FL (9.6-12.0); Monocytes # 0.3 10*3/uL (0.11-0.8); Monocytes % 3.8 % (1.7-12.7); Neutrophils # 7.5 10*3/uL (1.4-7.4); Neutrophils % 82.9 % (38.7-73.9); Platelet Count 311 T/CUMM (130-400); Red Blood Count 4.44 MC/CUMM (3.8-5.5); Red Cell Distribution Width 14.9 % (9.3-17.3)
[2017-10-15 05:32] LABS: Potassium 3.9 MMOL/L (3.5-5.1)
[2017-10-15] MEDS: CYANOCOBALAMIN 500 MCG TABLET PO SCH (09:57)
[2017-10-15] MEDS: clonazePAM 0.5 MG TABLET PO SCH ×3 (09:57→22:18)
[2017-10-15] MEDS: SOTALOL 80 MG TABLET PO SCH ×2 (09:58→22:19)
[2017-10-15] MEDS: PANTOPRAZOLE 40 MG TABLET PO SCH ×2 (09:58→22:19)
[2017-10-15] MEDS: PREGABALIN 100 MG CAPSULE PO SCH ×2 (09:58→22:18)
[2017-10-15] MEDS: APIXABAN 2.5 MG TABLET PO SCH ×2 (09:58→22:19)
[2017-10-15] MEDS: VENLAFAXINE XR 75 MG CAPSULE PO SCH ×2 (09:58→22:18)
[2017-10-15] MEDS: CHOLECALCIFEROL 1,000 UNIT TABLET PO SCH (09:58)
[2017-10-15] MEDS: amLODIPine 5 MG TABLET PO SCH (09:58)
[2017-10-15] MEDS: ACETAMINOPHEN 325 MG TABLET PO PRN (12:15)
[2017-10-15] MEDS: VANCOMYCIN INJ 1,000 MG in SODIUM CHLORIDE 0.9% 250 ML IV SCH (12:54)
[2017-10-15] MEDS: FERROUS SULFATE 325 MG TABLET PO SCH (14:21)
[2017-10-15] MEDS: FOLIC ACID 1 MG TABLET PO SCH (14:21)
[2017-10-15] MEDS: predniSONE 20 MG TABLET PO SCH (14:23)
[2017-10-15] MEDS: DOCUSATE SODIUM 100 MG CAPSULE PO SCH (22:17)
[2017-10-15] MEDS: ASPIRIN EC 81 MG TABLET PO SCH (22:18)
[2017-10-15] MEDS: LEVOFLOXACIN 500 MG TABLET PO SCH (22:19)
[2017-10-16] MEDS: VANCOMYCIN INJ 1,000 MG in SODIUM CHLORIDE 0.9% 250 ML IV SCH ×2 (00:06→11:50)
[2017-10-16] MEDS: SODIUM CHLORIDE 0.9% 1,000 ML IV SCH ×3 (00:08→12:19)
[2017-10-16] MEDS: ALBUTEROL 2.5 MG/3 ML NEB RESP TX SCH ×4 (00:13→19:07)
[2017-10-16 04:33] LABS: Basophils # 0.1 10*3/uL (0.0-0.2); Basophils % 0.7 % (0.0-0.8); Eosinophils # 0.2 10*3/uL (0.0-0.87); Eosinophils % 1.8 % (0.00-10.9); Hematocrit 36.9 VOL% (35.7-47.0); Hemoglobin 12.1 GM/DL (12.0-16.0); Immature Granulocytes % 0.4 %; Immature Granulocytes Absolute 0.04 #; Lymphocytes % 20.3 % (21.3-54.2); Mean Corpuscular HGB Conc 32.8 GM/DL (32-36); Mean Corpuscular Hemoglobin 31 PG (27-34); Mean Corpuscular Volume 93.7 FL (87-102); Mean Platelet Volume 9.4 FL (9.6-12.0); Monocytes # 0.9 10*3/uL (0.11-0.8); Monocytes % 9.3 % (1.7-12.7); Neutrophils # 6.5 10*3/uL (1.4-7.4); Neutrophils % 67.5 % (38.7-73.9); Platelet Count 294 T/CUMM (130-400); Red Blood Count 3.94 MC/CUMM (3.8-5.5); Red Cell Distribution Width 14.9 % (9.3-17.3); White Blood Count 9.6 T/CUMM (4-12)
[2017-10-16 04:57] LABS: Potassium 4.2 MMOL/L (3.5-5.1)
[2017-10-16] MEDS: CYANOCOBALAMIN 500 MCG TABLET PO SCH (08:51)
[2017-10-16] MEDS: VENLAFAXINE XR 75 MG CAPSULE PO SCH ×2 (08:51→21:57)
[2017-10-16] MEDS: hydrALAZINE 20 MG/1 ML VIAL IV PRN (08:51)
[2017-10-16] MEDS: amLODIPine 5 MG TABLET PO SCH (08:52)
[2017-10-16] MEDS: SOTALOL 80 MG TABLET PO SCH ×2 (08:52→21:55)
[2017-10-16] MEDS: PANTOPRAZOLE 40 MG TABLET PO SCH ×2 (08:52→21:57)
[2017-10-16] MEDS: clonazePAM 0.5 MG TABLET PO SCH ×3 (08:52→21:57)
[2017-10-16] MEDS: APIXABAN 2.5 MG TABLET PO SCH ×2 (08:52→21:56)
[2017-10-16] MEDS: PREGABALIN 100 MG CAPSULE PO SCH ×2 (08:52→21:58)
[2017-10-16] MEDS: CHOLECALCIFEROL 1,000 UNIT TABLET PO SCH (08:52)
[2017-10-16] MEDS: ONDANSETRON 4 MG/2 ML VIAL IV PRN (10:00)
[2017-10-16] MEDS: FERROUS SULFATE 325 MG TABLET PO SCH (14:28)
[2017-10-16] MEDS: FOLIC ACID 1 MG TABLET PO SCH (14:28)
[2017-10-16] MEDS: predniSONE 10 MG TABLET PO SCH (14:28)
[2017-10-16] MEDS: amLODIPine 2.5 MG TABLET PO SCH ×2 (15:28→21:55)
[2017-10-16] MEDS: DOCUSATE SODIUM 100 MG CAPSULE PO SCH (21:55)
[2017-10-16] MEDS: ASPIRIN EC 81 MG TABLET PO SCH (21:56)
[2017-10-16] MEDS: LEVOFLOXACIN 500 MG TABLET PO SCH (21:56)
[2017-10-16] MEDS: ZOLPIDEM 5 MG TABLET PO PRN (21:57)
[2017-10-17] MEDS: ALBUTEROL 2.5 MG/3 ML NEB RESP TX SCH ×4 (00:05→19:35)
[2017-10-17] MEDS: VANCOMYCIN INJ 1,000 MG in SODIUM CHLORIDE 0.9% 250 ML IV SCH ×2 (00:35→12:52)
[2017-10-17] MEDS: ACETAMINOPHEN 325 MG TABLET PO PRN ×2 (05:49→12:56)
[2017-10-17] MEDS: ONDANSETRON 4 MG/2 ML VIAL IV PRN (07:32)
[2017-10-17] MEDS: VENLAFAXINE XR 75 MG CAPSULE PO SCH ×2 (08:46→23:15)
[2017-10-17] MEDS: CYANOCOBALAMIN 500 MCG TABLET PO SCH (08:46)
[2017-10-17] MEDS: SOTALOL 80 MG TABLET PO SCH ×2 (08:46→23:15)
[2017-10-17] MEDS: CHOLECALCIFEROL 1,000 UNIT TABLET PO SCH (08:47)
[2017-10-17] MEDS: PREGABALIN 100 MG CAPSULE PO SCH ×2 (08:47→23:15)
[2017-10-17] MEDS: amLODIPine 2.5 MG TABLET PO SCH ×2 (08:47→23:16)
[2017-10-17] MEDS: clonazePAM 0.5 MG TABLET PO SCH ×3 (08:47→23:14)
[2017-10-17] MEDS: APIXABAN 2.5 MG TABLET PO SCH (08:47)
[2017-10-17] MEDS: PANTOPRAZOLE 40 MG TABLET PO SCH ×2 (08:47→23:18)
[2017-10-17] MEDS ORDERED: amLODIPine 5 MG TABLET PO SCH (11:00)
[2017-10-17] MEDS: predniSONE 20 MG TABLET PO SCH (14:35)
[2017-10-17] MEDS: FOLIC ACID 1 MG TABLET PO SCH (14:35)
[2017-10-17] MEDS: FERROUS SULFATE 325 MG TABLET PO SCH (14:35)
[2017-10-17] MEDS ORDERED: hydrALAZINE 25 MG TABLET PO SCH (15:00)
[2017-10-17] MEDS: DOXAZOSIN 1 MG TABLET PO SCH (17:54)
[2017-10-17] MEDS: POLYETHYLENE GLYCOL POWDER 17 GM PACK PO SCH (18:07)
[2017-10-17] MEDS: ASPIRIN EC 81 MG TABLET PO SCH (23:16)
[2017-10-17] MEDS: DOCUSATE SODIUM 100 MG CAPSULE PO SCH (23:17)
[2017-10-18] MEDS: VANCOMYCIN INJ 1,000 MG in SODIUM CHLORIDE 0.9% 250 ML IV SCH ×2 (01:10→12:10)
[2017-10-18] MEDS: ALBUTEROL 2.5 MG/3 ML NEB RESP TX SCH ×4 (01:16→19:54)
[2017-10-18 06:07] LABS: Basophils # 0.1 10*3/uL (0.0-0.2); Basophils % 0.4 % (0.0-0.8); Eosinophils # 0.1 10*3/uL (0.0-0.87); Eosinophils % 0.8 % (0.00-10.9); Hematocrit 34.6 VOL% (35.7-47.0); Hemoglobin 11.7 GM/DL (12.0-16.0); Immature Granulocytes % 0.4 %; Immature Granulocytes Absolute 0.07 #; Lymphocytes # 1.2 10*3/uL (1.4-4.0); Lymphocytes % 7.5 % (21.3-54.2); Mean Corpuscular HGB Conc 33.8 GM/DL (32-36); Mean Corpuscular Hemoglobin 31 PG (27-34); Mean Corpuscular Volume 92.5 FL (87-102); Mean Platelet Volume 9.5 FL (9.6-12.0); Monocytes # 0.7 10*3/uL (0.11-0.8); Monocytes % 4.5 % (1.7-12.7); Neutrophils # 14.1 10*3/uL (1.4-7.4); Neutrophils % 86.4 % (38.7-73.9); Platelet Count 243 T/CUMM (130-400); Red Blood Count 3.74 MC/CUMM (3.8-5.5); Red Cell Distribution Width 14.1 % (9.3-17.3); White Blood Count 16.4 T/CUMM (4-12)
[2017-10-18 06:26] LABS: Calcium 8.2 MG/DL (8.5-10.1); Osmolality,Calculated 270.4 MOS/KG (273-304); Potassium 3.9 MMOL/L (3.5-5.1)
[2017-10-18 06:29] LABS: Hypochromasia 1+; Microcytosis 1+; Ovalocytes Slight
[2017-10-18 06:30] LABS: Platelet Estimate Normal
[2017-10-18] MEDS: clonazePAM 0.5 MG TABLET PO SCH (09:01)
[2017-10-18] MEDS: SOTALOL 80 MG TABLET PO SCH ×2 (09:01→20:51)
[2017-10-18] MEDS: PREGABALIN 100 MG CAPSULE PO SCH ×2 (09:01→20:49)
[2017-10-18] MEDS: PANTOPRAZOLE 40 MG TABLET PO SCH ×2 (09:01→20:51)
[2017-10-18] MEDS: amLODIPine 2.5 MG TABLET PO SCH (09:02)
[2017-10-18] MEDS: CHOLECALCIFEROL 1,000 UNIT TABLET PO SCH (09:02)
[2017-10-18] MEDS: CYANOCOBALAMIN 500 MCG TABLET PO SCH (09:02)
[2017-10-18] MEDS: VENLAFAXINE XR 75 MG CAPSULE PO SCH ×2 (09:02→20:49)
[2017-10-18] MEDS: DOXAZOSIN 1 MG TABLET PO SCH (09:02)
[2017-10-18] MEDS ORDERED: FUROSEMIDE 40 MG/4 ML VIAL IV ONE (10:18)
[2017-10-18] MEDS: ACETAMINOPHEN 325 MG TABLET PO PRN (11:10)
[2017-10-18] MEDS: LEVOFLOXACIN INJ 750 MG in PREMIX 1 EACH IV SCH (11:24)
[2017-10-18 12:01] LABS: ABG Base Excess 2.3 MMOL/L (-2.5-2.5); ABG HCO3 26.2 MMOL/L (20-26); ABG Oxygen Saturation 82.3 % (95-100); ABG PO2 55.2 MM HG (80-95); ABG TCO2 31.9 MMOL/L (23-27)
[2017-10-18 12:04] LABS: ABG PH 7.178 (7.35-7.45)
[2017-10-18] MEDS ORDERED: NALOXONE 0.4 MG/ML VIAL IV ONE (12:08)
[2017-10-18] MEDS: methylPREDNISolone SOD SUC 40 MG/1 ML VIAL IV SCH ×2 (12:09→20:48)
[2017-10-18] MEDS: FOLIC ACID 1 MG TABLET PO SCH (13:45)
[2017-10-18] MEDS: FERROUS SULFATE 325 MG TABLET PO SCH (13:45)
[2017-10-18 14:33] LABS: ABG Base Excess 4.9 MMOL/L (-2.5-2.5); ABG HCO3 32.4 MMOL/L (20-26); ABG Oxygen Saturation 98.4 % (95-100); ABG PCO2 63.4 MM HG (35-48); ABG PH 7.326 (7.35-7.45); ABG PO2 139.1 MM HG (80-95); ABG TCO2 34.3 MMOL/L (23-27)
[2017-10-18 18:02] LABS: ABG Base Excess 6.5 MMOL/L (-2.5-2.5); ABG HCO3 33.5 MMOL/L (20-26); ABG Oxygen Saturation 94.3 % (95-100); ABG PCO2 60.4 MM HG (35-48); ABG PH 7.362 (7.35-7.45); ABG PO2 72.9 MM HG (80-95); ABG TCO2 35.4 MMOL/L (23-27)
[2017-10-18 20:18] LABS: Free T4 (Free Thyroxine) 1.25 NG/DL (0.76-1.46); Thyroid Stimulating Hormone 0.865 uIU/ml (0.358-3.74)
[2017-10-18] MEDS: POLYETHYLENE GLYCOL POWDER 17 GM PACK PO SCH (20:48)
[2017-10-18] MEDS: DOCUSATE SODIUM 100 MG CAPSULE PO SCH (20:48)
[2017-10-18] MEDS: ASPIRIN EC 81 MG TABLET PO SCH (20:49)
[2017-10-19] MEDS: VANCOMYCIN INJ 1,000 MG in SODIUM CHLORIDE 0.9% 250 ML IV SCH ×2 (00:49→13:03)
[2017-10-19] MEDS: ALBUTEROL 2.5 MG/3 ML NEB RESP TX SCH ×5 (00:55→19:57)
[2017-10-19 04:06] LABS: Allen Test Positive; Pt O2 Delivery Device BIPAP
[2017-10-19 04:08] LABS: ABG Base Excess 5.9 MMOL/L (-2.5-2.5); ABG HCO3 31.6 MMOL/L (20-26); ABG Oxygen Saturation 98.7 % (95-100); ABG PCO2 51.4 MM HG (35-48); ABG PH 7.407 (7.35-7.45); ABG PO2 150.8 MM HG (80-95); ABG TCO2 33.2 MMOL/L (23-27)
[2017-10-19 05:41] LABS: Basophils % 0.1 % (0.0-0.8); Hematocrit 33.1 VOL% (35.7-47.0); Hemoglobin 10.9 GM/DL (12.0-16.0); Immature Granulocytes % 0.5 %; Immature Granulocytes Absolute 0.04 #; Lymphocytes # 0.6 10*3/uL (1.4-4.0); Lymphocytes % 6.9 % (21.3-54.2); Mean Corpuscular HGB Conc 32.9 GM/DL (32-36); Mean Corpuscular Hemoglobin 31 PG (27-34); Mean Platelet Volume 9.4 FL (9.6-12.0); Monocytes # 0.1 10*3/uL (0.11-0.8); Monocytes % 1.2 % (1.7-12.7); Neutrophils # 8.1 10*3/uL (1.4-7.4); Neutrophils % 91.3 % (38.7-73.9); Platelet Count 209 T/CUMM (130-400); Red Blood Count 3.56 MC/CUMM (3.8-5.5); Red Cell Distribution Width 13.9 % (9.3-17.3); White Blood Count 8.9 T/CUMM (4-12)
[2017-10-19 06:16] LABS: Calcium 8.3 MG/DL (8.5-10.1); Osmolality,Calculated 274.1 MOS/KG (273-304); Potassium 3.9 MMOL/L (3.5-5.1)
[2017-10-19 06:29] LABS: Hypochromasia Slight; Lymphocytes 9 % (20-55); Microcytosis 1+; Platelet Estimate Adequate; Segmented Neutrophils 87 % (50-85); Total Cells Counted 100
[2017-10-19 06:58] LABS: ABG PCO2 93.9 MM HG (35-48)
[2017-10-19] MEDS: CYANOCOBALAMIN 500 MCG TABLET PO SCH (08:35)
[2017-10-19] MEDS: CHOLECALCIFEROL 1,000 UNIT TABLET PO SCH (08:35)
[2017-10-19] MEDS: VENLAFAXINE XR 75 MG CAPSULE PO SCH ×2 (08:35→20:21)
[2017-10-19] MEDS: PREGABALIN 100 MG CAPSULE PO SCH ×2 (08:35→20:22)
[2017-10-19] MEDS: methylPREDNISolone SOD SUC 40 MG/1 ML VIAL IV SCH ×2 (08:36→20:23)
[2017-10-19] MEDS: PANTOPRAZOLE 40 MG TABLET PO SCH ×2 (08:36→20:22)
[2017-10-19] MEDS: SOTALOL 80 MG TABLET PO SCH ×2 (08:36→20:21)
[2017-10-19] MEDS: LEVOFLOXACIN INJ 750 MG in PREMIX 1 EACH IV SCH (10:24)
[2017-10-19] MEDS: FERROUS SULFATE 325 MG TABLET PO SCH (15:00)
[2017-10-19] MEDS: FOLIC ACID 1 MG TABLET PO SCH (15:00)
[2017-10-19] MEDS: POLYETHYLENE GLYCOL POWDER 17 GM PACK PO SCH ×2 (18:24→20:29)
[2017-10-19] MEDS: DOCUSATE SODIUM 100 MG CAPSULE PO SCH (20:21)
[2017-10-19] MEDS: ASPIRIN EC 81 MG TABLET PO SCH (20:22)
[2017-10-20 05:19] LABS: Basophils % 0.1 % (0.0-0.8); Hematocrit 33.1 VOL% (35.7-47.0); Hemoglobin 10.9 GM/DL (12.0-16.0); Immature Granulocytes % 0.7 %; Immature Granulocytes Absolute 0.06 #; Lymphocytes # 0.8 10*3/uL (1.4-4.0); Lymphocytes % 9.3 % (21.3-54.2); Mean Corpuscular HGB Conc 32.9 GM/DL (32-36); Mean Corpuscular Hemoglobin 30 PG (27-34); Mean Corpuscular Volume 92.2 FL (87-102); Mean Platelet Volume 9.3 FL (9.6-12.0); Monocytes # 0.3 10*3/uL (0.11-0.8); Monocytes % 4.1 % (1.7-12.7); Neutrophils % 85.8 % (38.7-73.9); Platelet Count 260 T/CUMM (130-400); Red Blood Count 3.59 MC/CUMM (3.8-5.5); Red Cell Distribution Width 14.2 % (9.3-17.3); White Blood Count 8.1 T/CUMM (4-12)
[2017-10-20 05:32] LABS: Calcium 8.6 MG/DL (8.5-10.1); Osmolality,Calculated 282.7 MOS/KG (273-304); Potassium 3.4 MMOL/L (3.5-5.1)
[2017-10-20] MEDS: ALBUTEROL 2.5 MG/3 ML NEB RESP TX SCH ×2 (07:30→13:45)
[2017-10-20] MEDS: methylPREDNISolone SOD SUC 40 MG/1 ML VIAL IV SCH ×2 (08:17→21:46)
[2017-10-20] MEDS: CYANOCOBALAMIN 500 MCG TABLET PO SCH (08:17)
[2017-10-20] MEDS: CHOLECALCIFEROL 1,000 UNIT TABLET PO SCH (08:17)
[2017-10-20] MEDS: SOTALOL 80 MG TABLET PO SCH ×2 (08:18→21:44)
[2017-10-20] MEDS: VENLAFAXINE XR 75 MG CAPSULE PO SCH ×2 (08:18→21:44)
[2017-10-20] MEDS: PANTOPRAZOLE 40 MG TABLET PO SCH ×2 (08:18→21:45)
[2017-10-20] MEDS: PREGABALIN 100 MG CAPSULE PO SCH ×2 (08:18→21:45)
[2017-10-20] MEDS: VANCOMYCIN INJ 1,000 MG in SODIUM CHLORIDE 0.9% 250 ML IV SCH (10:47)
[2017-10-20] MEDS: POTASSIUM CHLORIDE 20 MEQ/15 ML UDCUP PER TUBE PRN ×4 (10:48→21:46)
[2017-10-20] MEDS: LEVOFLOXACIN INJ 750 MG in PREMIX 1 EACH IV SCH (11:55)
[2017-10-20] MEDS: FOLIC ACID 1 MG TABLET PO SCH (14:38)
[2017-10-20] MEDS: FERROUS SULFATE 325 MG TABLET PO SCH (14:38)
[2017-10-20] MEDS: POLYETHYLENE GLYCOL POWDER 17 GM PACK PO SCH (18:08)
[2017-10-20] MEDS: DOCUSATE SODIUM 100 MG CAPSULE PO SCH (21:45)
[2017-10-20] MEDS: ASPIRIN EC 81 MG TABLET PO SCH (21:45)
[2017-10-21] MEDS: ALBUTEROL 2.5 MG/3 ML NEB RESP TX SCH ×5 (00:42→19:44)
[2017-10-21 01:49] LABS: Basophils % 0.1 % (0.0-0.8); Eosinophils % 0.1 % (0.00-10.9); Hematocrit 34.3 VOL% (35.7-47.0); Hemoglobin 11.8 GM/DL (12.0-16.0); Immature Granulocytes % 1.1 %; Immature Granulocytes Absolute 0.11 #; Lymphocytes # 0.8 10*3/uL (1.4-4.0); Lymphocytes % 8.1 % (21.3-54.2); Mean Corpuscular HGB Conc 34.4 GM/DL (32-36); Mean Corpuscular Hemoglobin 31 PG (27-34); Mean Corpuscular Volume 89.6 FL (87-102); Mean Platelet Volume 8.9 FL (9.6-12.0); Monocytes # 0.3 10*3/uL (0.11-0.8); Monocytes % 3.3 % (1.7-12.7); Neutrophils # 8.9 10*3/uL (1.4-7.4); Neutrophils % 87.3 % (38.7-73.9); Platelet Count 295 T/CUMM (130-400); Red Blood Count 3.83 MC/CUMM (3.8-5.5); Red Cell Distribution Width 14.6 % (9.3-17.3); White Blood Count 10.2 T/CUMM (4-12)
[2017-10-21 02:24] LABS: Calcium 8.5 MG/DL (8.5-10.1); Osmolality,Calculated 282.7 MOS/KG (273-304); Potassium 4.1 MMOL/L (3.5-5.1)
[2017-10-21] MEDS: PREGABALIN 100 MG CAPSULE PO SCH ×2 (08:38→21:43)
[2017-10-21] MEDS: SOTALOL 80 MG TABLET PO SCH ×2 (08:38→21:43)
[2017-10-21] MEDS: VENLAFAXINE XR 75 MG CAPSULE PO SCH ×2 (08:38→21:43)
[2017-10-21] MEDS: CHOLECALCIFEROL 1,000 UNIT TABLET PO SCH (08:38)
[2017-10-21] MEDS: VANCOMYCIN INJ 1,000 MG in SODIUM CHLORIDE 0.9% 250 ML IV SCH (08:38)
[2017-10-21] MEDS: CYANOCOBALAMIN 500 MCG TABLET PO SCH (08:38)
[2017-10-21] MEDS: methylPREDNISolone SOD SUC 40 MG/1 ML VIAL IV SCH ×2 (08:39→21:44)
[2017-10-21] MEDS: PANTOPRAZOLE 40 MG TABLET PO SCH ×2 (08:39→21:44)
[2017-10-21] MEDS: LEVOFLOXACIN INJ 750 MG in PREMIX 1 EACH IV SCH (11:13)
[2017-10-21] MEDS: FERROUS SULFATE 325 MG TABLET PO SCH (13:35)
[2017-10-21] MEDS: FOLIC ACID 1 MG TABLET PO SCH (13:35)
[2017-10-21] MEDS: clonazePAM 0.5 MG TABLET PO SCH ×2 (13:35→21:43)
[2017-10-21] MEDS: POLYETHYLENE GLYCOL POWDER 17 GM PACK PO SCH (18:50)
[2017-10-21] MEDS: ASPIRIN EC 81 MG TABLET PO SCH (21:43)
[2017-10-21] MEDS: DOCUSATE SODIUM 100 MG CAPSULE PO SCH (21:43)
[2017-10-21] MEDS: ZOLPIDEM 5 MG TABLET PO PRN (21:45)
[2017-10-22] MEDS: ALBUTEROL 2.5 MG/3 ML NEB RESP TX SCH ×4 (01:51→19:07)
[2017-10-22 03:07] LABS: Basophils % 0.2 % (0.0-0.8); Eosinophils % 0.1 % (0.00-10.9); Hemoglobin 12.6 GM/DL (12.0-16.0); Immature Granulocytes % 2.4 %; Immature Granulocytes Absolute 0.21 #; Lymphocytes # 1.1 10*3/uL (1.4-4.0); Mean Corpuscular HGB Conc 34.1 GM/DL (32-36); Mean Corpuscular Hemoglobin 31 PG (27-34); Mean Corpuscular Volume 89.6 FL (87-102); Mean Platelet Volume 9.3 FL (9.6-12.0); Monocytes # 0.3 10*3/uL (0.11-0.8); Monocytes % 3.6 % (1.7-12.7); Neutrophils # 7.1 10*3/uL (1.4-7.4); Neutrophils % 81.7 % (38.7-73.9); Platelet Count 317 T/CUMM (130-400); Red Blood Count 4.13 MC/CUMM (3.8-5.5); Red Cell Distribution Width 14.6 % (9.3-17.3); White Blood Count 8.7 T/CUMM (4-12)
[2017-10-22 03:46] LABS: Calcium 8.6 MG/DL (8.5-10.1)
[2017-10-22] MEDS: VANCOMYCIN INJ 1,000 MG in SODIUM CHLORIDE 0.9% 250 ML IV SCH ×2 (09:44→20:36)
[2017-10-22] MEDS: LEVOFLOXACIN INJ 750 MG in PREMIX 1 EACH IV SCH (09:44)
[2017-10-22] MEDS: clonazePAM 0.5 MG TABLET PO SCH ×3 (09:51→20:36)
[2017-10-22] MEDS: CYANOCOBALAMIN 500 MCG TABLET PO SCH (09:51)
[2017-10-22] MEDS: CHOLECALCIFEROL 1,000 UNIT TABLET PO SCH (09:51)
[2017-10-22] MEDS: PANTOPRAZOLE 40 MG TABLET PO SCH ×2 (09:52→20:35)
[2017-10-22] MEDS: SOTALOL 80 MG TABLET PO SCH ×2 (09:52→20:35)
[2017-10-22] MEDS: methylPREDNISolone SOD SUC 40 MG/1 ML VIAL IV SCH ×2 (09:52→20:36)
[2017-10-22] MEDS: VENLAFAXINE XR 75 MG CAPSULE PO SCH ×2 (09:52→20:35)
[2017-10-22] MEDS: hydrALAZINE 20 MG/1 ML VIAL IV PRN (11:20)
[2017-10-22] MEDS: FERROUS SULFATE 325 MG TABLET PO SCH (13:28)
[2017-10-22] MEDS: FOLIC ACID 1 MG TABLET PO SCH (13:28)
[2017-10-22] MEDS: POLYETHYLENE GLYCOL POWDER 17 GM PACK PO SCH (20:35)
[2017-10-22] MEDS: DOCUSATE SODIUM 100 MG CAPSULE PO SCH (20:35)
[2017-10-22] MEDS: ASPIRIN EC 81 MG TABLET PO SCH (20:36)
[2017-10-23] MEDS: ALBUTEROL 2.5 MG/3 ML NEB RESP TX SCH ×4 (00:46→19:30)
[2017-10-23] MEDS: ACETAMINOPHEN 325 MG TABLET PO PRN (04:00)
[2017-10-23] MEDS: VANCOMYCIN INJ 1,000 MG in SODIUM CHLORIDE 0.9% 250 ML IV SCH ×2 (08:40→23:55)
[2017-10-23] MEDS: methylPREDNISolone SOD SUC 40 MG/1 ML VIAL IV SCH ×2 (08:40→21:31)
[2017-10-23] MEDS: PANTOPRAZOLE 40 MG TABLET PO SCH ×2 (08:44→21:18)
[2017-10-23] MEDS: CYANOCOBALAMIN 500 MCG TABLET PO SCH (08:44)
[2017-10-23] MEDS: clonazePAM 0.5 MG TABLET PO SCH ×3 (08:44→21:18)
[2017-10-23] MEDS: SOTALOL 80 MG TABLET PO SCH ×2 (08:45→21:18)
[2017-10-23] MEDS: CHOLECALCIFEROL 1,000 UNIT TABLET PO SCH (08:45)
[2017-10-23] MEDS: VENLAFAXINE XR 75 MG CAPSULE PO SCH ×2 (08:45→21:18)
[2017-10-23] MEDS: LEVOFLOXACIN INJ 750 MG in PREMIX 1 EACH IV SCH (09:46)
[2017-10-23] MEDS: ALUMINUM/MAGNES/SIMETH MAX STR 30 ML UDCUP PO PRN (13:38)
[2017-10-23] MEDS: FERROUS SULFATE 325 MG TABLET PO SCH (13:39)
[2017-10-23] MEDS: FOLIC ACID 1 MG TABLET PO SCH (13:39)
[2017-10-23] MEDS: POLYETHYLENE GLYCOL POWDER 17 GM PACK PO SCH (18:29)
[2017-10-23] MEDS: DOCUSATE SODIUM 100 MG CAPSULE PO SCH (21:18)
[2017-10-23] MEDS: ASPIRIN EC 81 MG TABLET PO SCH (21:18)
[2017-10-24] MEDS: ALBUTEROL 2.5 MG/3 ML NEB RESP TX SCH ×4 (01:50→19:24)
[2017-10-24] MEDS: ALUMINUM/MAGNES/SIMETH MAX STR 30 ML UDCUP PO PRN ×2 (02:06→09:40)
[2017-10-24 04:24] LABS: Basophils % 0.3 % (0.0-0.8); Hematocrit 36.5 VOL% (35.7-47.0); Hemoglobin 12.8 GM/DL (12.0-16.0); Immature Granulocytes % 2.6 %; Immature Granulocytes Absolute 0.33 #; Lymphocytes # 1.1 10*3/uL (1.4-4.0); Lymphocytes % 8.9 % (21.3-54.2); Mean Corpuscular HGB Conc 35.1 GM/DL (32-36); Mean Corpuscular Hemoglobin 31 PG (27-34); Mean Platelet Volume 9.5 FL (9.6-12.0); Monocytes # 0.4 10*3/uL (0.11-0.8); Monocytes % 3.3 % (1.7-12.7); Neutrophils # 10.7 10*3/uL (1.4-7.4); Neutrophils % 84.9 % (38.7-73.9); Platelet Count 322 T/CUMM (130-400); Red Cell Distribution Width 14.6 % (9.3-17.3); White Blood Count 12.6 T/CUMM (4-12)
[2017-10-24 05:51] LABS: Calcium 8.4 MG/DL (8.5-10.1); Potassium 3.8 MMOL/L (3.5-5.1)
[2017-10-24] MEDS: VENLAFAXINE XR 75 MG CAPSULE PO SCH ×2 (09:40→21:12)
[2017-10-24] MEDS: PANTOPRAZOLE 40 MG TABLET PO SCH ×2 (09:41→21:10)
[2017-10-24] MEDS: SOTALOL 80 MG TABLET PO SCH ×2 (09:41→21:09)
[2017-10-24] MEDS: CYANOCOBALAMIN 500 MCG TABLET PO SCH (09:41)
[2017-10-24] MEDS: CHOLECALCIFEROL 1,000 UNIT TABLET PO SCH (09:42)
[2017-10-24] MEDS: LEVOFLOXACIN INJ 750 MG in PREMIX 1 EACH IV SCH (09:42)
[2017-10-24] MEDS: clonazePAM 0.5 MG TABLET PO SCH ×3 (09:42→21:09)
[2017-10-24] MEDS: methylPREDNISolone SOD SUC 40 MG/1 ML VIAL IV SCH ×2 (09:43→21:12)
[2017-10-24] MEDS: VANCOMYCIN INJ 1,000 MG in SODIUM CHLORIDE 0.9% 250 ML IV SCH (12:48)
[2017-10-24] MEDS ORDERED: FLUCONAZOLE INJ 200 MG in PREMIX 1 EACH IV ONE (13:14)
[2017-10-24] MEDS: FERROUS SULFATE 325 MG TABLET PO SCH (13:44)
[2017-10-24] MEDS: FOLIC ACID 1 MG TABLET PO SCH (13:45)
[2017-10-24] MEDS ORDERED: VANCOMYCIN INJ 2,000 MG in SODIUM CHLORIDE 0.9% 500 ML IV SCH (18:00)
[2017-10-24] MEDS: POLYETHYLENE GLYCOL POWDER 17 GM PACK PO SCH (18:23)
[2017-10-24] MEDS: ASPIRIN EC 81 MG TABLET PO SCH (21:10)
[2017-10-24] MEDS: DOCUSATE SODIUM 100 MG CAPSULE PO SCH (21:11)
[2017-10-25] MEDS: ALBUTEROL 2.5 MG/3 ML NEB RESP TX SCH ×3 (00:58→12:01)
[2017-10-25] MEDS: ALUMINUM/MAGNES/SIMETH MAX STR 30 ML UDCUP PO PRN (07:38)
[2017-10-25 08:21] VITALS: BP 141/77
[2017-10-25] MEDS: clonazePAM 0.5 MG TABLET PO SCH ×2 (08:36→14:43)
[2017-10-25] MEDS: CYANOCOBALAMIN 500 MCG TABLET PO SCH (08:36)
[2017-10-25] MEDS: VENLAFAXINE XR 75 MG CAPSULE PO SCH (08:37)
[2017-10-25] MEDS: CHOLECALCIFEROL 1,000 UNIT TABLET PO SCH (08:37)
[2017-10-25] MEDS: PANTOPRAZOLE 40 MG TABLET PO SCH (08:37)
[2017-10-25] MEDS: SOTALOL 80 MG TABLET PO SCH (08:37)
[2017-10-25] MEDS ORDERED: predniSONE 20 MG TABLET PO SCH (09:00)
[2017-10-25] MEDS ORDERED: FLUCONAZOLE INJ 100 MG in IV BAG 1 EACH IV SCH (13:30)
[2017-10-25] MEDS: FOLIC ACID 1 MG TABLET PO SCH (14:43)
[2017-10-25] MEDS: FERROUS SULFATE 325 MG TABLET PO SCH (14:43)
== END 2017-10-25 16:45 | DRG 193 ==
LOC: N.EDINP 11:20 → N.ED 11:20 → SUATTDRO 15:38 → N.TELES 16:33 → SUATTDRO 10-16 11:03 → N.CC 10-18 12:02 → N.TELEN 10-23 16:19
PROVIDERS: ADMIT Hospitalist; ATTEND Internal Medicine

== ENCOUNTER 2019-05-29 12:42 | Observation (INO) ==
[2019-05-29] MEDS ORDERED: SODIUM CHLORIDE 0.9% 1,000 ML IV STA (13:01)
[2019-05-29 13:33] LABS: Basophils # 0.1 10*3/uL (0.0-0.2); Basophils % 0.8 % (0.0-0.8); Eosinophils # 0.2 10*3/uL (0.0-0.87); Eosinophils % 2.7 % (0.00-10.9); Hematocrit 32.7 VOL% (35.7-47.0); Immature Granulocytes % 0.9 %; Immature Granulocytes Absolute 0.06 #; Lymphocytes % 16.2 % (21.3-54.2); Mean Corpuscular HGB Conc 30.6 GM/DL (32-36); Mean Corpuscular Volume 98.5 FL (87-102); Mean Platelet Volume 9.9 FL (9.6-12.0); Monocytes % 9.6 % (1.7-12.7); Neutrophils % 69.8 % (38.7-73.9); Platelet Count 202 T/CUMM (130-400); Red Blood Count 3.32 MC/CUMM (3.8-5.5); Red Cell Distribution Width 15.7 % (9.3-17.3); White Blood Count 6.3 T/CUMM (4-12)
[2019-05-29 13:38] LABS: Apearance,Urine CLEAR (Clear); Bilirubin,Urine Negative (Negative); Blood, Urine Negative (Negative); Glucose,Urine (UA) Negative (Negative); Ketones,Urine Negative (Negative); Mucus,Urine Occasional /LPF (Occasional); Nitrite,Urine Negative (Negative); Protein,Urine Negative; Urine Color Yellow (Yellow); Urine Specific Gravity 1.018 (1.001-1.035); Urine Urobilinogen < 2.0 EU/DL (0.2-1.0); WBC,Urine <1 /HPF (0-6)
[2019-05-29 13:43] LABS: PT Patient Result 11.1 SECS (9.6-12.2)
[2019-05-29 14:01] LABS: Alanine Aminotransferase 22 U/L (13-56); Alkaline Phosphatase 63 U/L (45-117); Aspartate Amino Transferase 15 U/L (0-37); Bilirubin,Total < 0.39 MG/DL (0.2-1.0); Blood Urea Nitrogen 33 MG/DL (7-18); Calcium 8.3 MG/DL (8.5-10.1); Estimated Glom Filtration Rate 48 ML/MIN; Glucose 82 MG/DL (74-106)
[2019-05-29] MEDS ORDERED: MORPHINE 4 MG/1 ML VIAL IV PRN (14:44)
[2019-05-29] MEDS ORDERED: PROMETHAZINE 25 MG/1 ML VIAL IM PRN (14:44)
[2019-05-29] MEDS ORDERED: ACETAMINOPHEN 325 MG TABLET PO PRN (14:44)
[2019-05-29] MEDS ORDERED: ONDANSETRON 4 MG/2 ML VIAL IV PRN (14:44)
[2019-05-29] MEDS ORDERED: methylPREDNISolone SOD SUC 125 MG/2 ML VIAL IV STA (14:47)
[2019-05-29] MEDS: SODIUM CHLORIDE 0.9% 1,000 ML IV SCH (17:30)
[2019-05-29] MEDS: MECLIZINE 25 MG TABLET PO SCH ×2 (17:35→20:41)
[2019-05-29] MEDS ORDERED: ENOXAPARIN 40 MG/0.4 ML SYRINGE SUBCUT SCH (21:00)
[2019-05-29] MEDS: APIXABAN 2.5 MG TABLET PO SCH (21:31)
[2019-05-30] MEDS: SODIUM CHLORIDE 0.9% 1,000 ML IV SCH (05:09)
[2019-05-30 05:52] LABS: Basophils % 0.2 % (0.0-0.8); Hematocrit 33.1 VOL% (35.7-47.0); Hemoglobin 10.2 GM/DL (12.0-16.0); Immature Granulocytes % 0.7 %; Immature Granulocytes Absolute 0.03 #; Lymphocytes # 0.8 10*3/uL (1.4-4.0); Mean Corpuscular HGB Conc 30.8 GM/DL (32-36); Mean Corpuscular Volume 97.9 FL (87-102); Monocytes % 5.5 % (1.7-12.7); Neutrophils % 74.6 % (38.7-73.9); Platelet Count 173 T/CUMM (130-400); Red Blood Count 3.38 MC/CUMM (3.8-5.5); Red Cell Distribution Width 15.7 % (9.3-17.3); White Blood Count 4.2 T/CUMM (4-12)
[2019-05-30 06:14] LABS: Albumin 2.6 G/DL (3.4-5.0); Bilirubin,Total 0.4 MG/DL (0.2-1.0); Calcium 7.9 MG/DL (8.5-10.1); Osmolality,Calculated 284.4 MOS/KG (273-304); Risk Ratio 2.79; Total Protein 6.1 G/DL (6.4-8.3)
[2019-05-30 07:19] VITALS: BP 160/85
[2019-05-30] MEDS ORDERED: PANTOPRAZOLE 40 MG TABLET PO SCH (09:00)
[2019-05-30] MEDS ORDERED: POLYETHYLENE GLYCOL POWDER 17 GM PACK PO SCH (09:00)
[2019-05-30] MEDS ORDERED: FERROUS SULFATE 325 MG TABLET PO SCH (09:00)
[2019-05-30] MEDS: MECLIZINE 25 MG TABLET PO SCH (09:07)
[2019-05-30] MEDS: APIXABAN 2.5 MG TABLET PO SCH (09:07)
[2019-05-30] MEDS ORDERED: SIMVASTATIN 20 MG TABLET PO SCH (21:00)
== END 2019-05-30 10:05 | disposition home or self-care (01) ==
LOC: EDBD → EDUNIT# → N.EDINP 12:42 → N.ED 12:42 → SUATTDRO 14:44 → N.5E 15:26
PROVIDERS: ADMIT Internal Medicine; ATTEND Internal Medicine

== ENCOUNTER 2019-06-01 13:30 | Observation (INO) ==
[2019-06-01 14:38] LABS: Basophils % 0.3 % (0.0-0.8); Eosinophils # 0.1 10*3/uL (0.0-0.87); Eosinophils % 1.5 % (0.00-10.9); Hematocrit 33.9 VOL% (35.7-47.0); Hemoglobin 10.4 GM/DL (12.0-16.0); Immature Granulocytes % 0.5 %; Immature Granulocytes Absolute 0.03 #; Lymphocytes % 15.8 % (21.3-54.2); Mean Corpuscular HGB Conc 30.7 GM/DL (32-36); Mean Corpuscular Volume 97.7 FL (87-102); Monocytes % 8.3 % (1.7-12.7); Neutrophils % 73.6 % (38.7-73.9); Platelet Count 209 T/CUMM (130-400); Red Blood Count 3.47 MC/CUMM (3.8-5.5); Red Cell Distribution Width 15.9 % (9.3-17.3); White Blood Count 6.1 T/CUMM (4-12)
[2019-06-01 14:48] LABS: PT Patient Result 10.7 SECS (9.6-12.2); Partial Thromboplastin Time 28.2 SECS (20.8-36.0)
[2019-06-01 14:57] LABS: Alanine Aminotransferase 25 U/L (13-56); Albumin 2.8 G/DL (3.4-5.0); Alkaline Phosphatase 67 U/L (45-117); Aspartate Amino Transferase 18 U/L (0-37); Bilirubin,Total < 0.39 MG/DL (0.2-1.0); Blood Urea Nitrogen 26 MG/DL (7-18); Calcium 8.1 MG/DL (8.5-10.1); Estimated Glom Filtration Rate 54 ML/MIN; Glucose 83 MG/DL (74-106); Osmolality,Calculated 278.7 MOS/KG (273-304); Total Protein 6.4 G/DL (6.4-8.3)
[2019-06-01 17:09] LABS: Apearance,Urine CLEAR (Clear); Bacteria,Urine Occasional /HPF (Few); Bilirubin,Urine Negative (Negative); Blood, Urine Negative (Negative); Glucose,Urine (UA) Negative (Negative); Ketones,Urine Negative (Negative); Mucus,Urine Occasional /LPF (Occasional); Nitrite,Urine Negative (Negative); Protein,Urine Negative; RBC,Urine 2 /HPF (0-4); Urine Color Yellow (Yellow); Urine Specific Gravity 1.011 (1.001-1.035); Urine Urobilinogen < 2.0 EU/DL (0.2-1.0); WBC,Urine 3 /HPF (0-6)
[2019-06-01] MEDS ORDERED: MECLIZINE 25 MG TABLET PO PRN (17:25)
[2019-06-01] MEDS: SOTALOL 80 MG TABLET PO SCH (20:51)
[2019-06-01] MEDS: PREGABALIN 100 MG CAPSULE PO SCH (20:51)
[2019-06-01] MEDS: DOCUSATE SODIUM 100 MG CAPSULE PO SCH (20:51)
[2019-06-01] MEDS: VENLAFAXINE 75 MG TABLET PO SCH (20:52)
[2019-06-01] MEDS: AMITRIPTYLINE 10 MG TABLET PO SCH (20:52)
[2019-06-01] MEDS: APIXABAN 2.5 MG TABLET PO SCH (20:52)
[2019-06-02 04:55] LABS: Basophils % 0.4 % (0.0-0.8); Eosinophils # 0.3 10*3/uL (0.0-0.87); Eosinophils % 6.7 % (0.00-10.9); Hematocrit 31.6 VOL% (35.7-47.0); Hemoglobin 9.8 GM/DL (12.0-16.0); Immature Granulocytes % 0.7 %; Immature Granulocytes Absolute 0.03 #; Lymphocytes % 20.9 % (21.3-54.2); Mean Corpuscular Volume 97.2 FL (87-102); Mean Platelet Volume 10.2 FL (9.6-12.0); Monocytes % 8.5 % (1.7-12.7); Neutrophils % 62.8 % (38.7-73.9); Platelet Count 176 T/CUMM (130-400); Red Blood Count 3.25 MC/CUMM (3.8-5.5); Red Cell Distribution Width 15.8 % (9.3-17.3); White Blood Count 4.6 T/CUMM (4-12)
[2019-06-02 05:13] LABS: Albumin 2.6 G/DL (3.4-5.0); Bilirubin,Total 0.5 MG/DL (0.2-1.0); Calcium 8.1 MG/DL (8.5-10.1); Osmolality,Calculated 281.5 MOS/KG (273-304); Total Protein 5.8 G/DL (6.4-8.3)
[2019-06-02] MEDS ORDERED: ALBUTEROL/IPRATROPIUM 3 ML NEB RESP TX PRN (06:11)
[2019-06-02] MEDS ORDERED: POTASSIUM CHLORIDE 20 MEQ TABLET PO ONE (08:41)
[2019-06-02] MEDS ORDERED: MAGNESIUM SULF RIDER 2 GM in PREMIX 1 EACH IV ONE (08:41)
[2019-06-02] MEDS ORDERED: CYANOCOBALAMIN 1000 MCG/1 ML VIAL IM SCH (09:00)
[2019-06-02] MEDS: MELOXICAM 7.5 MG TABLET PO SCH (09:16)
[2019-06-02] MEDS: APIXABAN 2.5 MG TABLET PO SCH (09:17)
[2019-06-02] MEDS: SOTALOL 80 MG TABLET PO SCH ×2 (09:17→20:37)
[2019-06-02] MEDS: ASPIRIN EC 81 MG TABLET PO SCH (09:17)
[2019-06-02] MEDS: FOLIC ACID 1 MG TABLET PO SCH (09:17)
[2019-06-02] MEDS: VENLAFAXINE 75 MG TABLET PO SCH ×2 (09:17→20:37)
[2019-06-02] MEDS: ROSUVASTATIN 20 MG TABLET PO SCH (09:18)
[2019-06-02] MEDS: PREGABALIN 100 MG CAPSULE PO SCH ×2 (09:18→20:38)
[2019-06-02] MEDS: PANTOPRAZOLE 40 MG TABLET PO SCH (09:18)
[2019-06-02] MEDS: predniSONE 10 MG TABLET PO SCH (09:19)
[2019-06-02] MEDS: FERROUS SULFATE 325 MG TABLET PO SCH (09:19)
[2019-06-02] MEDS: CHOLECALCIFEROL 1,000 UNIT TABLET PO SCH (09:27)
[2019-06-02] MEDS: POLYETHYLENE GLYCOL POWDER 17 GM PACK PO SCH (10:24)
[2019-06-02] MEDS: DOCUSATE SODIUM 100 MG CAPSULE PO SCH (20:36)
[2019-06-02] MEDS: APIXABAN 5 MG TABLET PO SCH (20:38)
[2019-06-02] MEDS: AMITRIPTYLINE 10 MG TABLET PO SCH (22:48)
[2019-06-02] MEDS: ACETAMINOPHEN 325 MG TABLET PO PRN (23:28)
[2019-06-02] MEDS: HydrOXYzine PAMOATE 25 MG CAPSULE PO PRN (23:48)
[2019-06-03 05:07] LABS: Basophils % 0.4 % (0.0-0.8); Eosinophils # 0.3 10*3/uL (0.0-0.87); Eosinophils % 5.6 % (0.00-10.9); Hematocrit 30.9 VOL% (35.7-47.0); Hemoglobin 9.6 GM/DL (12.0-16.0); Immature Granulocytes % 0.9 %; Immature Granulocytes Absolute 0.04 #; Lymphocytes # 1.1 10*3/uL (1.4-4.0); Lymphocytes % 23.4 % (21.3-54.2); Mean Corpuscular HGB Conc 31.1 GM/DL (32-36); Mean Corpuscular Volume 96.6 FL (87-102); Mean Platelet Volume 10.3 FL (9.6-12.0); Monocytes % 7.4 % (1.7-12.7); Neutrophils % 62.3 % (38.7-73.9); Platelet Count 181 T/CUMM (130-400); Red Cell Distribution Width 15.9 % (9.3-17.3); White Blood Count 4.6 T/CUMM (4-12)
[2019-06-03 05:45] LABS: Alanine Aminotransferase 19 U/L (13-56); Albumin 2.4 G/DL (3.4-5.0); Alkaline Phosphatase 59 U/L (45-117); Aspartate Amino Transferase 12 U/L (0-37); Bilirubin,Total < 0.39 MG/DL (0.2-1.0); Blood Urea Nitrogen 31 MG/DL (7-18); Estimated Glom Filtration Rate 48 ML/MIN; Glucose 90 MG/DL (74-106); Osmolality,Calculated 281.7 MOS/KG (273-304); Total Protein 5.7 G/DL (6.4-8.3)
[2019-06-03] MEDS: SOTALOL 80 MG TABLET PO SCH ×2 (09:44→21:28)
[2019-06-03] MEDS: MELOXICAM 7.5 MG TABLET PO SCH (09:45)
[2019-06-03] MEDS: ASPIRIN EC 81 MG TABLET PO SCH (09:45)
[2019-06-03] MEDS: PANTOPRAZOLE 40 MG TABLET PO SCH (09:46)
[2019-06-03] MEDS: ROSUVASTATIN 20 MG TABLET PO SCH (09:46)
[2019-06-03] MEDS: VENLAFAXINE 75 MG TABLET PO SCH ×2 (09:48→21:28)
[2019-06-03] MEDS: APIXABAN 5 MG TABLET PO SCH ×2 (09:48→21:28)
[2019-06-03] MEDS: CHOLECALCIFEROL 1,000 UNIT TABLET PO SCH (09:48)
[2019-06-03] MEDS: PREGABALIN 100 MG CAPSULE PO SCH ×2 (09:49→21:29)
[2019-06-03] MEDS: predniSONE 10 MG TABLET PO SCH (09:49)
[2019-06-03] MEDS: FERROUS SULFATE 325 MG TABLET PO SCH (09:49)
[2019-06-03] MEDS: FOLIC ACID 1 MG TABLET PO SCH (09:50)
[2019-06-03] MEDS: POLYETHYLENE GLYCOL POWDER 17 GM PACK PO SCH (10:19)
[2019-06-03] MEDS ORDERED: clonazePAM 0.5 MG TABLET PO SCH (21:00)
[2019-06-03] MEDS: HydrOXYzine PAMOATE 25 MG CAPSULE PO PRN (21:27)
[2019-06-03] MEDS: DOCUSATE SODIUM 100 MG CAPSULE PO SCH (21:27)
[2019-06-03] MEDS: AMITRIPTYLINE 10 MG TABLET PO SCH (21:29)
[2019-06-03] MEDS: ACETAMINOPHEN 325 MG TABLET PO PRN (21:30)
[2019-06-04 06:19] LABS: Basophils % 0.6 % (0.0-0.8); Eosinophils # 0.3 10*3/uL (0.0-0.87); Eosinophils % 6.3 % (0.00-10.9); Hematocrit 31.8 VOL% (35.7-47.0); Hemoglobin 9.9 GM/DL (12.0-16.0); Immature Granulocytes % 1.1 %; Immature Granulocytes Absolute 0.05 #; Lymphocytes # 1.5 10*3/uL (1.4-4.0); Lymphocytes % 32.5 % (21.3-54.2); Mean Corpuscular HGB Conc 31.1 GM/DL (32-36); Mean Corpuscular Volume 96.7 FL (87-102); Mean Platelet Volume 9.8 FL (9.6-12.0); Monocytes % 7.8 % (1.7-12.7); Neutrophils % 51.7 % (38.7-73.9); Platelet Count 169 T/CUMM (130-400); Red Blood Count 3.29 MC/CUMM (3.8-5.5); Red Cell Distribution Width 15.9 % (9.3-17.3); White Blood Count 4.6 T/CUMM (4-12)
[2019-06-04 07:04] LABS: Alanine Aminotransferase 20 U/L (13-56); Albumin 2.2 G/DL (3.4-5.0); Alkaline Phosphatase 59 U/L (45-117); Aspartate Amino Transferase 17 U/L (0-37); Bilirubin,Total < 0.39 MG/DL (0.2-1.0); Blood Urea Nitrogen 28 MG/DL (7-18); Calcium 8.2 MG/DL (8.5-10.1); Estimated Glom Filtration Rate 62 ML/MIN; Glucose 80 MG/DL (74-106); Osmolality,Calculated 274.1 MOS/KG (273-304); Total Protein 5.7 G/DL (6.4-8.3)
[2019-06-04] MEDS: FOLIC ACID 1 MG TABLET PO SCH (09:23)
[2019-06-04] MEDS: APIXABAN 5 MG TABLET PO SCH (09:23)
[2019-06-04] MEDS: PREGABALIN 100 MG CAPSULE PO SCH (09:23)
[2019-06-04] MEDS: ACETAMINOPHEN 325 MG TABLET PO PRN (09:23)
[2019-06-04] MEDS: POLYETHYLENE GLYCOL POWDER 17 GM PACK PO SCH (09:23)
[2019-06-04] MEDS: predniSONE 10 MG TABLET PO SCH (09:24)
[2019-06-04] MEDS: CHOLECALCIFEROL 1,000 UNIT TABLET PO SCH (09:24)
[2019-06-04] MEDS: FERROUS SULFATE 325 MG TABLET PO SCH (09:24)
[2019-06-04] MEDS: MELOXICAM 7.5 MG TABLET PO SCH (09:24)
[2019-06-04] MEDS: ROSUVASTATIN 20 MG TABLET PO SCH (09:24)
[2019-06-04] MEDS: SOTALOL 80 MG TABLET PO SCH (09:24)
[2019-06-04] MEDS: ASPIRIN EC 81 MG TABLET PO SCH (09:25)
[2019-06-04] MEDS: VENLAFAXINE 75 MG TABLET PO SCH (09:25)
[2019-06-04] MEDS: PANTOPRAZOLE 40 MG TABLET PO SCH (09:25)
[2019-06-04 16:23] VITALS: BP 108/49
== END 2019-06-04 16:55 | disposition home or self-care (01) ==
LOC: N.EDINP 13:30 → N.ED 13:30 → N.4E 17:48
PROVIDERS: ADMIT Internal Medicine; ATTEND Internal Medicine

== ENCOUNTER 2021-02-28 14:46 | Inpatient (IN) ==
[2021-02-28] MEDS ORDERED: DILTIAZEM 50 MG/10 ML VIAL IV STA (15:23)
[2021-02-28 15:27] LABS: Basophils # 0.1 10*3/uL (0.0-0.2); Basophils % 1.2 % (0.0-0.8); Eosinophils # 0.4 10*3/uL (0.0-0.87); Eosinophils % 7.4 % (0.00-10.9); Hematocrit 36.6 VOL% (35.7-47.0); Hemoglobin 11.9 GM/DL (12.0-16.0); Immature Granulocytes % 0.4 %; Immature Granulocytes Absolute 0.02 #; Lymphocytes # 1.3 10*3/uL (1.4-4.0); Lymphocytes % 22.6 % (21.3-54.2); Mean Corpuscular HGB Conc 32.5 GM/DL (32-36); Mean Corpuscular Volume 87.4 FL (87-102); Mean Platelet Volume 9.1 FL (9.6-12.0); Monocytes % 13.2 % (1.7-12.7); Neutrophils % 55.2 % (38.7-73.9); Platelet Count 363 T/CUMM (130-400); Red Blood Count 4.19 MC/CUMM (3.8-5.5); White Blood Count 5.7 T/CUMM (4-12)
[2021-02-28 15:43] LABS: Bilirubin,Total 0.6 MG/DL (0.20-1.00); Calcium 8.9 MG/DL (8.5-10.1); Osmolality,Calculated 251.2 MOS/KG (273-304); Potassium 3.7 MMOL/L (3.5-5.1)
[2021-02-28] MEDS ORDERED: MAGNESIUM SULF RIDER 2 GM/50 ML PREMIX IV STA (17:40)
[2021-02-28] MEDS ORDERED: ACETAMINOPHEN 325 MG TABLET PO PRN (17:43)
[2021-02-28] MEDS ORDERED: DEXTROSE 50% 25 GM/50 ML VIAL IV PRN (17:43)
[2021-02-28] MEDS ORDERED: GLUCAGON 1 MG VIAL IM PRN (17:43)
[2021-02-28] MEDS ORDERED: ONDANSETRON ODT 4 MG TABLET PO PRN (17:59)
[2021-02-28] MEDS ORDERED: traZODone 50 MG TABLET PO PRN (18:07)
[2021-02-28] MEDS: DILTIAZEM INJ 100 MG in SODIUM CHLORIDE 0.9% 100 ML IV SCH (19:00)
[2021-02-28] MEDS: APIXABAN 2.5 MG TABLET PO SCH (21:58)
[2021-02-28] MEDS: PREGABALIN 50 MG CAPSULE PO SCH (21:58)
[2021-02-28] MEDS: PANTOPRAZOLE 40 MG TABLET PO SCH (21:58)
[2021-02-28] MEDS: VENLAFAXINE XR 75 MG CAPSULE PO SCH (21:58)
[2021-02-28] MEDS: NYSTATIN CREAM 15 GM TUBE TOP SCH (22:56)
[2021-03-01] MEDS: DILTIAZEM INJ 100 MG in SODIUM CHLORIDE 0.9% 100 ML IV SCH (05:50)
[2021-03-01 06:25] LABS: Basophils # 0.1 10*3/uL (0.0-0.2); Basophils % 1.2 % (0.0-0.8); Eosinophils # 0.5 10*3/uL (0.0-0.87); Eosinophils % 10.2 % (0.00-10.9); Hematocrit 34.8 VOL% (35.7-47.0); Hemoglobin 11.4 GM/DL (12.0-16.0); Immature Granulocytes % 0.2 %; Immature Granulocytes Absolute 0.01 #; Lymphocytes % 18.8 % (21.3-54.2); Mean Corpuscular HGB Conc 32.8 GM/DL (32-36); Mean Corpuscular Volume 88.1 FL (87-102); Mean Platelet Volume 8.9 FL (9.6-12.0); Monocytes % 9.8 % (1.7-12.7); Neutrophils % 59.8 % (38.7-73.9); Platelet Count 301 T/CUMM (130-400); Red Blood Count 3.95 MC/CUMM (3.8-5.5); Red Cell Distribution Width 13.8 % (9.3-17.3); White Blood Count 5.1 T/CUMM (4-12)
[2021-03-01 06:41] LABS: Albumin 2.6 G/DL (3.4-5.0); Bilirubin,Total 0.6 MG/DL (0.20-1.00); Calcium 8.6 MG/DL (8.5-10.1); Osmolality,Calculated 258.7 MOS/KG (273-304); Potassium 3.5 MMOL/L (3.5-5.1)
[2021-03-01] MEDS ORDERED: FERROUS SULFATE 325 MG TABLET PO SCH (09:00)
[2021-03-01] MEDS ORDERED: ASCORBIC ACID 500 MG TABLET PO SCH (09:00)
[2021-03-01] MEDS ORDERED: CYANOCOBALAMIN 500 MCG TABLET PO SCH (09:00)
[2021-03-01] MEDS ORDERED: CYANOCOBALAMIN 1000 MCG/1 ML VIAL IM SCH (09:00)
[2021-03-01] MEDS ORDERED: CHOLECALCIFEROL 1,000 UNIT TABLET PO SCH (09:00)
[2021-03-01] MEDS: SOTALOL 80 MG TABLET PO SCH ×2 (10:55→22:39)
[2021-03-01] MEDS: APIXABAN 2.5 MG TABLET PO SCH ×2 (10:55→22:39)
[2021-03-01] MEDS: VENLAFAXINE XR 75 MG CAPSULE PO SCH ×2 (10:56→22:39)
[2021-03-01] MEDS: PANTOPRAZOLE 40 MG TABLET PO SCH ×2 (10:57→22:39)
[2021-03-01] MEDS: PREGABALIN 50 MG CAPSULE PO SCH ×2 (10:58→22:38)
[2021-03-01] MEDS: ONDANSETRON 4 MG/2 ML VIAL IV PRN (11:04)
[2021-03-01] MEDS: NYSTATIN CREAM 15 GM TUBE TOP SCH ×2 (11:25→22:52)
[2021-03-01] MEDS: oxyCODONE IR 5 MG TABLET PO PRN (22:51)
[2021-03-02 04:51] LABS: Basophils % 0.7 % (0.0-0.8); Eosinophils # 0.8 10*3/uL (0.0-0.87); Eosinophils % 17.2 % (0.00-10.9); Hematocrit 32.4 VOL% (35.7-47.0); Hemoglobin 10.5 GM/DL (12.0-16.0); Immature Granulocytes % 0.2 %; Immature Granulocytes Absolute 0.01 #; Lymphocytes # 1.2 10*3/uL (1.4-4.0); Lymphocytes % 26.4 % (21.3-54.2); Mean Corpuscular HGB Conc 32.4 GM/DL (32-36); Mean Corpuscular Volume 89.5 FL (87-102); Mean Platelet Volume 9.3 FL (9.6-12.0); Monocytes % 12.9 % (1.7-12.7); Neutrophils % 42.6 % (38.7-73.9); Platelet Count 260 T/CUMM (130-400); Red Blood Count 3.62 MC/CUMM (3.8-5.5); Red Cell Distribution Width 13.9 % (9.3-17.3); White Blood Count 4.4 T/CUMM (4-12)
[2021-03-02 05:16] LABS: Calcium 8.3 MG/DL (8.5-10.1); Osmolality,Calculated 259.7 MOS/KG (273-304); Potassium 3.5 MMOL/L (3.5-5.1)
[2021-03-02 05:17] LABS: Atypical Lymphocytes Few; Band Neutrophils 2 % (0-10); Eosinophils 14 % (0-10); Hypochromasia 1+; Lymphocytes 31 % (20-55); Microcytosis Slight; Platelet Estimate Normal; Segmented Neutrophils 44 % (50-85); Total Cells Counted 100
[2021-03-02] MEDS ORDERED: MAGNESIUM SULF RIDER 2 GM/50 ML PREMIX IV PRN (07:37)
[2021-03-02] MEDS ORDERED: MAGNESIUM SULF RIDER 4 GM/100 ML PREMIX IV PRN (07:37)
[2021-03-02] MEDS: FERROUS SULFATE 325 MG TABLET PO SCH ×2 (08:14→17:25)
[2021-03-02] MEDS: CYANOCOBALAMIN 500 MCG TABLET PO SCH ×2 (08:15→19:21)
[2021-03-02] MEDS: CHOLECALCIFEROL 1,000 UNIT TABLET PO SCH ×2 (08:15→19:21)
[2021-03-02] MEDS: ASCORBIC ACID 500 MG TABLET PO SCH ×3 (08:15→19:21)
[2021-03-02] MEDS: DILTIAZEM INJ 100 MG in SODIUM CHLORIDE 0.9% 100 ML IV SCH ×2 (08:15→19:20)
[2021-03-02] MEDS ORDERED: SODIUM CHLORIDE 0.9% 1,000 ML IV SCH (09:00)
[2021-03-02] MEDS: SOTALOL 80 MG TABLET PO SCH ×2 (09:08→20:38)
[2021-03-02] MEDS: PANTOPRAZOLE 40 MG TABLET PO SCH ×2 (09:45→23:04)
[2021-03-02] MEDS: MAGNESIUM OXIDE 400 MG TABLET PO SCH (09:45)
[2021-03-02] MEDS: VENLAFAXINE XR 75 MG CAPSULE PO SCH ×2 (09:45→23:04)
[2021-03-02] MEDS: APIXABAN 2.5 MG TABLET PO SCH ×2 (09:45→23:04)
[2021-03-02] MEDS: PREGABALIN 50 MG CAPSULE PO SCH (09:46)
[2021-03-02] MEDS: NYSTATIN CREAM 15 GM TUBE TOP SCH ×2 (09:48→23:04)
[2021-03-02 09:59] LABS: Ferritin 94.5 ng/mL (8-252)
[2021-03-02] MEDS ORDERED: LORazepam 1 MG TABLET PO ONE (13:00)
[2021-03-02] MEDS: POLYETHYLENE GLYCOL POWDER 17 GM PACK PO SCH (13:50)
[2021-03-02] MEDS: PREGABALIN 75 MG CAPSULE PO SCH (23:04)
[2021-03-03 08:19] LABS: Basophils % 0.7 % (0.0-0.8); Eosinophils # 0.7 10*3/uL (0.0-0.87); Eosinophils % 14.4 % (0.00-10.9); Hematocrit 32.4 VOL% (35.7-47.0); Hemoglobin 10.2 GM/DL (12.0-16.0); Immature Granulocytes % 0.2 %; Immature Granulocytes Absolute 0.01 #; Lymphocytes # 0.9 10*3/uL (1.4-4.0); Lymphocytes % 20.3 % (21.3-54.2); Mean Corpuscular HGB Conc 31.5 GM/DL (32-36); Mean Corpuscular Volume 91.3 FL (87-102); Mean Platelet Volume 9.1 FL (9.6-12.0); Monocytes % 10.5 % (1.7-12.7); Neutrophils % 53.9 % (38.7-73.9); Platelet Count 223 T/CUMM (130-400); Red Blood Count 3.55 MC/CUMM (3.8-5.5); Red Cell Distribution Width 14.3 % (9.3-17.3); White Blood Count 4.6 T/CUMM (4-12)
[2021-03-03 08:38] LABS: Calcium 7.9 MG/DL (8.5-10.1); Osmolality,Calculated 263.5 MOS/KG (273-304); Potassium 3.4 MMOL/L (3.5-5.1)
[2021-03-03 08:46] LABS: Anisocytosis 1+; Band Neutrophils 4 % (0-10); Eosinophils 13 % (0-10); Lymphocytes 15 % (20-55); Platelet Estimate Normal; Segmented Neutrophils 56 % (50-85); Smudge Cells Few; Total Cells Counted 100
[2021-03-03 08:47] LABS: Macrocytosis Slight
[2021-03-03] MEDS: ASCORBIC ACID 500 MG TABLET PO SCH ×2 (09:28→18:25)
[2021-03-03] MEDS: PREGABALIN 75 MG CAPSULE PO SCH (09:28)
[2021-03-03] MEDS: SOTALOL 80 MG TABLET PO SCH ×2 (09:28→20:15)
[2021-03-03] MEDS: APIXABAN 2.5 MG TABLET PO SCH ×2 (09:29→20:16)
[2021-03-03] MEDS: MAGNESIUM OXIDE 400 MG TABLET PO SCH (09:29)
[2021-03-03] MEDS: VENLAFAXINE XR 75 MG CAPSULE PO SCH ×2 (09:29→20:16)
[2021-03-03] MEDS: PANTOPRAZOLE 40 MG TABLET PO SCH ×2 (09:32→20:16)
[2021-03-03] MEDS: NYSTATIN CREAM 15 GM TUBE TOP SCH ×2 (09:33→21:39)
[2021-03-03] MEDS: POLYETHYLENE GLYCOL POWDER 17 GM PACK PO SCH (09:33)
[2021-03-03] MEDS: SODIUM CHLORIDE 0.9% 1,000 ML IV SCH (11:46)
[2021-03-03] MEDS: oxyCODONE IR 5 MG TABLET PO PRN (14:05)
[2021-03-03] MEDS: POTASSIUM CHLORIDE 20 MEQ TABLET PO PRN ×2 (15:06→17:59)
[2021-03-03] MEDS: FERROUS SULFATE 325 MG TABLET PO SCH (17:58)
[2021-03-03] MEDS: DILTIAZEM INJ 100 MG in SODIUM CHLORIDE 0.9% 100 ML IV SCH (18:10)
[2021-03-03] MEDS: CHOLECALCIFEROL 1,000 UNIT TABLET PO SCH (18:24)
[2021-03-03] MEDS: CYANOCOBALAMIN 500 MCG TABLET PO SCH (18:24)
[2021-03-03] MEDS: PREGABALIN 100 MG CAPSULE PO SCH (20:17)
[2021-03-04 03:59] LABS: Basophils % 0.9 % (0.0-0.8); Eosinophils # 0.7 10*3/uL (0.0-0.87); Eosinophils % 14.7 % (0.00-10.9); Hematocrit 30.2 VOL% (35.7-47.0); Hemoglobin 9.1 GM/DL (12.0-16.0); Immature Granulocytes % 0.2 %; Immature Granulocytes Absolute 0.01 #; Lymphocytes # 1.1 10*3/uL (1.4-4.0); Lymphocytes % 23.8 % (21.3-54.2); Mean Corpuscular HGB Conc 30.1 GM/DL (32-36); Mean Corpuscular Volume 93.8 FL (87-102); Mean Platelet Volume 9.7 FL (9.6-12.0); Monocytes % 10.2 % (1.7-12.7); Neutrophils % 50.2 % (38.7-73.9); Platelet Count 213 T/CUMM (130-400); Red Blood Count 3.22 MC/CUMM (3.8-5.5); Red Cell Distribution Width 14.6 % (9.3-17.3); White Blood Count 4.6 T/CUMM (4-12)
[2021-03-04 04:22] LABS: Calcium 7.8 MG/DL (8.5-10.1); Osmolality,Calculated 264.5 MOS/KG (273-304); Potassium 4.2 MMOL/L (3.5-5.1)
[2021-03-04 04:45] LABS: Eosinophils 8 % (0-10); Lymphocytes 20 % (20-55); Segmented Neutrophils 60 % (50-85); Total Cells Counted 100
[2021-03-04 04:46] LABS: Hypochromasia Slight; Platelet Estimate Normal
[2021-03-04 08:35] LABS: % Iron Saturation 12.4 % (18-50)
[2021-03-04] MEDS: POLYETHYLENE GLYCOL POWDER 17 GM PACK PO SCH (08:41)
[2021-03-04 08:59] LABS: Vitamin B12 > 2000 PG/ML (211-911)
[2021-03-04] MEDS: ASCORBIC ACID 500 MG TABLET PO SCH ×2 (09:25→17:47)
[2021-03-04] MEDS: MAGNESIUM OXIDE 400 MG TABLET PO SCH (09:25)
[2021-03-04] MEDS: VENLAFAXINE XR 75 MG CAPSULE PO SCH ×2 (09:25→21:46)
[2021-03-04] MEDS: PREGABALIN 100 MG CAPSULE PO SCH ×2 (09:25→21:46)
[2021-03-04] MEDS: PANTOPRAZOLE 40 MG TABLET PO SCH ×2 (09:25→21:46)
[2021-03-04] MEDS: SOTALOL 80 MG TABLET PO SCH (09:25)
[2021-03-04] MEDS: APIXABAN 2.5 MG TABLET PO SCH ×2 (09:25→21:46)
[2021-03-04] MEDS: oxyCODONE IR 5 MG TABLET PO PRN (09:25)
[2021-03-04] MEDS: NYSTATIN CREAM 15 GM TUBE TOP SCH ×2 (09:26→21:46)
[2021-03-04] MEDS ORDERED: SODIUM PHOSPHATE ENEMA 133 ML BOTTLE RECTAL PRN (10:57)
[2021-03-04] MEDS ORDERED: BISACODYL 5 MG TABLET PO ONE (10:57)
[2021-03-04] MEDS ORDERED: SODIUM CHLORIDE 0.9% 500 ML IV ONE (11:44)
[2021-03-04] MEDS: SODIUM CHLORIDE 0.9% 1,000 ML IV SCH ×2 (11:49)
[2021-03-04] MEDS ORDERED: MIDAZOLAM 10 MG/2 ML VIAL ONE (11:57)
[2021-03-04] MEDS ORDERED: ZINC OXIDE PASTE 113 GM TUBE TOP PRN (14:57)
[2021-03-04] MEDS: FERROUS SULFATE 325 MG TABLET PO SCH (17:46)
[2021-03-04] MEDS: CYANOCOBALAMIN 500 MCG TABLET PO SCH (17:47)
[2021-03-04] MEDS: DILTIAZEM INJ 100 MG in SODIUM CHLORIDE 0.9% 100 ML IV SCH (17:47)
[2021-03-04] MEDS: CHOLECALCIFEROL 1,000 UNIT TABLET PO SCH (17:47)
[2021-03-05 05:44] LABS: Basophils % 0.6 % (0.0-0.8); Eosinophils # 0.4 10*3/uL (0.0-0.87); Hematocrit 31.6 VOL% (35.7-47.0); Hemoglobin 9.4 GM/DL (12.0-16.0); Immature Granulocytes % 0.2 %; Immature Granulocytes Absolute 0.01 #; Lymphocytes # 1.3 10*3/uL (1.4-4.0); Mean Corpuscular HGB Conc 29.7 GM/DL (32-36); Mean Corpuscular Volume 95.2 FL (87-102); Mean Platelet Volume 9.8 FL (9.6-12.0); Monocytes % 11.3 % (1.7-12.7); Neutrophils % 52.9 % (38.7-73.9); Platelet Count 237 T/CUMM (130-400); Red Blood Count 3.32 MC/CUMM (3.8-5.5); Red Cell Distribution Width 14.9 % (9.3-17.3); White Blood Count 4.9 T/CUMM (4-12)
[2021-03-05] MEDS: SOTALOL 80 MG TABLET PO SCH ×2 (05:52→10:13)
[2021-03-05] MEDS: SODIUM CHLORIDE 0.9% 1,000 ML IV SCH ×2 (05:53→06:48)
[2021-03-05 06:04] LABS: Calcium 7.7 MG/DL (8.5-10.1); Potassium 4.9 MMOL/L (3.5-5.1)
[2021-03-05] MEDS ORDERED: FERROUS SULFATE ER 140 MG TABLET PO SCH (09:00)
[2021-03-05] MEDS: ASCORBIC ACID 500 MG TABLET PO SCH ×2 (10:13→17:28)
[2021-03-05] MEDS: APIXABAN 2.5 MG TABLET PO SCH ×2 (10:13→20:43)
[2021-03-05] MEDS: PREGABALIN 100 MG CAPSULE PO SCH (10:13)
[2021-03-05] MEDS: MAGNESIUM OXIDE 400 MG TABLET PO SCH (10:13)
[2021-03-05] MEDS: PANTOPRAZOLE 40 MG TABLET PO SCH ×2 (10:13→20:43)
[2021-03-05] MEDS: FERROUS SULFATE 325 MG TABLET PO SCH ×2 (10:13→17:29)
[2021-03-05] MEDS: VENLAFAXINE XR 75 MG CAPSULE PO SCH ×2 (10:13→20:43)
[2021-03-05] MEDS: POLYETHYLENE GLYCOL POWDER 17 GM PACK PO SCH (10:14)
[2021-03-05] MEDS: NYSTATIN CREAM 15 GM TUBE TOP SCH (10:14)
[2021-03-05] MEDS: CHOLECALCIFEROL 1,000 UNIT TABLET PO SCH (17:29)
[2021-03-05] MEDS: CYANOCOBALAMIN 500 MCG TABLET PO SCH (17:29)
[2021-03-05] MEDS: BISACODYL 5 MG TABLET PO PRN (17:33)
[2021-03-05] MEDS: PREGABALIN 25 MG CAPSULE PO SCH (20:43)
[2021-03-06] MEDS: NYSTATIN CREAM 15 GM TUBE TOP SCH ×3 (03:25→22:51)
[2021-03-06] MEDS: SODIUM CHLORIDE 0.9% 1,000 ML IV SCH ×3 (03:25→22:49)
[2021-03-06] MEDS: SOTALOL 80 MG TABLET PO SCH ×3 (03:25→22:49)
[2021-03-06 05:57] LABS: Calcium 7.7 MG/DL (8.5-10.1); Osmolality,Calculated 277.8 MOS/KG (273-304); Potassium 4.5 MMOL/L (3.5-5.1)
[2021-03-06 05:59] LABS: Basophils % 0.5 % (0.0-0.8); Eosinophils # 0.3 10*3/uL (0.0-0.87); Eosinophils % 5.3 % (0.00-10.9); Hematocrit 31.2 VOL% (35.7-47.0); Hemoglobin 9.3 GM/DL (12.0-16.0); Immature Granulocytes % 0.3 %; Immature Granulocytes Absolute 0.02 #; Lymphocytes # 1.3 10*3/uL (1.4-4.0); Lymphocytes % 22.1 % (21.3-54.2); Mean Corpuscular HGB Conc 29.8 GM/DL (32-36); Mean Platelet Volume 9.9 FL (9.6-12.0); Monocytes % 10.4 % (1.7-12.7); Neutrophils % 61.4 % (38.7-73.9); Platelet Count 226 T/CUMM (130-400); Red Blood Count 3.32 MC/CUMM (3.8-5.5); Red Cell Distribution Width 15.1 % (9.3-17.3); White Blood Count 6.1 T/CUMM (4-12)
[2021-03-06] MEDS: POLYETHYLENE GLYCOL POWDER 17 GM PACK PO SCH (10:28)
[2021-03-06] MEDS: ASCORBIC ACID 500 MG TABLET PO SCH ×2 (10:29→17:22)
[2021-03-06] MEDS: APIXABAN 2.5 MG TABLET PO SCH (10:31)
[2021-03-06] MEDS: VENLAFAXINE XR 75 MG CAPSULE PO SCH ×2 (10:31→22:50)
[2021-03-06] MEDS: MAGNESIUM OXIDE 400 MG TABLET PO SCH (10:31)
[2021-03-06] MEDS: PREGABALIN 25 MG CAPSULE PO SCH ×2 (10:31→22:50)
[2021-03-06] MEDS: FERROUS SULFATE 325 MG TABLET PO SCH ×2 (10:31→17:22)
[2021-03-06] MEDS: PANTOPRAZOLE 40 MG TABLET PO SCH ×2 (10:32→22:50)
[2021-03-06] MEDS ORDERED: BISACODYL 10 MG SUPP RECTAL PRN (11:41)
[2021-03-06] MEDS ORDERED: BISACODYL 10 MG SUPP RECTAL ONE (11:41)
[2021-03-06] MEDS: CYANOCOBALAMIN 500 MCG TABLET PO SCH (17:22)
[2021-03-06] MEDS: CHOLECALCIFEROL 1,000 UNIT TABLET PO SCH (17:22)
[2021-03-07] MEDS: oxyCODONE IR 5 MG TABLET PO PRN ×3 (04:32→19:41)
[2021-03-07 06:14] LABS: Basophils % 0.6 % (0.0-0.8); Eosinophils # 0.4 10*3/uL (0.0-0.87); Eosinophils % 6.2 % (0.00-10.9); Hematocrit 30.5 VOL% (35.7-47.0); Hemoglobin 9.3 GM/DL (12.0-16.0); Immature Granulocytes % 0.3 %; Immature Granulocytes Absolute 0.02 #; Lymphocytes # 1.1 10*3/uL (1.4-4.0); Lymphocytes % 17.2 % (21.3-54.2); Mean Corpuscular HGB Conc 30.5 GM/DL (32-36); Mean Corpuscular Volume 93.8 FL (87-102); Mean Platelet Volume 9.8 FL (9.6-12.0); Monocytes % 11.4 % (1.7-12.7); Neutrophils % 64.3 % (38.7-73.9); Platelet Count 228 T/CUMM (130-400); Red Blood Count 3.25 MC/CUMM (3.8-5.5); Red Cell Distribution Width 15.1 % (9.3-17.3); White Blood Count 6.6 T/CUMM (4-12)
[2021-03-07] MEDS: SODIUM CHLORIDE 0.9% 1,000 ML IV SCH ×2 (06:30→08:17)
[2021-03-07 06:39] LABS: Calcium 8.1 MG/DL (8.5-10.1); Osmolality,Calculated 277.8 MOS/KG (273-304); Potassium 4.3 MMOL/L (3.5-5.1)
[2021-03-07] MEDS ORDERED: LACTATED RINGERS 1,000 ML IV SCH (08:00)
[2021-03-07] MEDS: FERROUS SULFATE 325 MG TABLET PO SCH ×2 (08:17→17:29)
[2021-03-07] MEDS: ASCORBIC ACID 500 MG TABLET PO SCH ×2 (14:11→17:28)
[2021-03-07] MEDS: SOTALOL 80 MG TABLET PO SCH ×2 (14:11→21:41)
[2021-03-07] MEDS: PANTOPRAZOLE 40 MG TABLET PO SCH ×2 (14:11→21:42)
[2021-03-07] MEDS: PREGABALIN 25 MG CAPSULE PO SCH ×2 (14:11→21:42)
[2021-03-07] MEDS: MAGNESIUM OXIDE 400 MG TABLET PO SCH (14:11)
[2021-03-07] MEDS: POLYETHYLENE GLYCOL POWDER 17 GM PACK PO SCH (14:11)
[2021-03-07] MEDS: VENLAFAXINE XR 75 MG CAPSULE PO SCH ×2 (14:11→21:52)
[2021-03-07] MEDS: NYSTATIN CREAM 15 GM TUBE TOP SCH ×2 (16:05→23:44)
[2021-03-07] MEDS: CYANOCOBALAMIN 500 MCG TABLET PO SCH (17:25)
[2021-03-07] MEDS: CHOLECALCIFEROL 1,000 UNIT TABLET PO SCH (17:26)
[2021-03-08] MEDS: NYSTATIN CREAM 15 GM TUBE TOP SCH (06:58)
[2021-03-08 08:45] LABS: Basophils # 0.1 10*3/uL (0.0-0.2); Eosinophils # 0.9 10*3/uL (0.0-0.87); Eosinophils % 16.3 % (0.00-10.9); Hematocrit 33.7 VOL% (35.7-47.0); Hemoglobin 9.9 GM/DL (12.0-16.0); Immature Granulocytes % 0.2 %; Immature Granulocytes Absolute 0.01 #; Lymphocytes # 1.4 10*3/uL (1.4-4.0); Mean Corpuscular HGB Conc 29.4 GM/DL (32-36); Mean Corpuscular Volume 96.8 FL (87-102); Mean Platelet Volume 9.8 FL (9.6-12.0); Monocytes % 13.2 % (1.7-12.7); Neutrophils % 45.3 % (38.7-73.9); Platelet Count 208 T/CUMM (130-400); Red Blood Count 3.48 MC/CUMM (3.8-5.5); Red Cell Distribution Width 15.7 % (9.3-17.3); White Blood Count 5.8 T/CUMM (4-12)
[2021-03-08 08:52] LABS: Eosinophils 18 % (0-10); Hypochromasia 1+; Lymphocytes 27 % (20-55); Microcytosis 1+; Ovalocytes Slight; Platelet Estimate Adequate; Segmented Neutrophils 44 % (50-85); Total Cells Counted 100
[2021-03-08] MEDS ORDERED: TUBERCULIN SKIN TEST 0.1 ML SYRINGE INTRADERM ONE (09:00)
[2021-03-08 09:15] LABS: Calcium 8.4 MG/DL (8.5-10.1); Osmolality,Calculated 277.8 MOS/KG (273-304); Potassium 4.5 MMOL/L (3.5-5.1)
[2021-03-08] MEDS: FERROUS SULFATE 325 MG TABLET PO SCH ×2 (10:28→17:35)
[2021-03-08] MEDS: SODIUM CHLORIDE 0.9% 1,000 ML IV SCH (10:29)
[2021-03-08] MEDS: PREGABALIN 25 MG CAPSULE PO SCH ×2 (10:30→21:02)
[2021-03-08] MEDS: PANTOPRAZOLE 40 MG TABLET PO SCH ×2 (10:30→21:02)
[2021-03-08] MEDS: SOTALOL 80 MG TABLET PO SCH ×2 (10:30→21:02)
[2021-03-08] MEDS: MAGNESIUM OXIDE 400 MG TABLET PO SCH (10:30)
[2021-03-08] MEDS: ASCORBIC ACID 500 MG TABLET PO SCH ×2 (10:30→17:35)
[2021-03-08] MEDS: VENLAFAXINE XR 75 MG CAPSULE PO SCH ×2 (10:30→21:02)
[2021-03-08] MEDS: POLYETHYLENE GLYCOL POWDER 17 GM PACK PO SCH (10:35)
[2021-03-08] MEDS: LEVOFLOXACIN INJ 500 MG/100 ML PREMIX IV SCH (12:11)
[2021-03-08] MEDS: LACTATED RINGERS 1,000 ML IV SCH (13:03)
[2021-03-08] MEDS ORDERED: LIDOCAINE 2% 5 ML VIAL ONE (14:34)
[2021-03-08] MEDS ORDERED: propofoL 200 MG/20 ML VIAL IV ONE (14:34)
[2021-03-08] MEDS ORDERED: ETOMIDATE 20 MG/10 ML VIAL IV ONE (14:34)
[2021-03-08] MEDS: CHOLECALCIFEROL 1,000 UNIT TABLET PO SCH (17:35)
[2021-03-08] MEDS: CYANOCOBALAMIN 500 MCG TABLET PO SCH (18:10)
[2021-03-08] MEDS: BISACODYL 5 MG TABLET PO PRN (21:01)
[2021-03-08] MEDS: ONDANSETRON 4 MG/2 ML VIAL IV PRN (21:15)
[2021-03-09] MEDS: oxyCODONE IR 5 MG TABLET PO PRN ×3 (00:57→21:39)
[2021-03-09] MEDS: NYSTATIN CREAM 15 GM TUBE TOP SCH ×3 (01:00→21:37)
[2021-03-09 06:31] LABS: Basophils % 0.7 % (0.0-0.8); Eosinophils # 0.6 10*3/uL (0.0-0.87); Eosinophils % 10.9 % (0.00-10.9); Hematocrit 30.9 VOL% (35.7-47.0); Hemoglobin 9.4 GM/DL (12.0-16.0); Immature Granulocytes % 0.2 %; Immature Granulocytes Absolute 0.01 #; Lymphocytes # 1.5 10*3/uL (1.4-4.0); Lymphocytes % 26.9 % (21.3-54.2); Mean Corpuscular HGB Conc 30.4 GM/DL (32-36); Mean Corpuscular Volume 93.4 FL (87-102); Monocytes % 12.3 % (1.7-12.7); Platelet Count 249 T/CUMM (130-400); Red Blood Count 3.31 MC/CUMM (3.8-5.5); Red Cell Distribution Width 15.5 % (9.3-17.3); White Blood Count 5.4 T/CUMM (4-12)
[2021-03-09 06:55] LABS: Calcium 8.4 MG/DL (8.5-10.1); Osmolality,Calculated 282.3 MOS/KG (273-304); Potassium 4.4 MMOL/L (3.5-5.1)
[2021-03-09] MEDS: LEVOFLOXACIN INJ 500 MG/100 ML PREMIX IV SCH (09:27)
[2021-03-09] MEDS: POLYETHYLENE GLYCOL POWDER 17 GM PACK PO SCH (09:29)
[2021-03-09] MEDS: PREGABALIN 25 MG CAPSULE PO SCH ×2 (09:30→21:37)
[2021-03-09] MEDS: SOTALOL 80 MG TABLET PO SCH ×2 (09:30→21:38)
[2021-03-09] MEDS: VENLAFAXINE XR 75 MG CAPSULE PO SCH ×2 (09:30→21:37)
[2021-03-09] MEDS: PANTOPRAZOLE 40 MG TABLET PO SCH ×2 (09:30→17:39)
[2021-03-09] MEDS: MAGNESIUM OXIDE 400 MG TABLET PO SCH (09:30)
[2021-03-09] MEDS: FERROUS SULFATE 325 MG TABLET PO SCH ×2 (09:30→17:54)
[2021-03-09] MEDS: LACTATED RINGERS 1,000 ML IV SCH (10:13)
[2021-03-09] MEDS: ASCORBIC ACID 500 MG TABLET PO SCH ×2 (10:13→17:54)
[2021-03-09] MEDS ORDERED: MAGNESIUM SULF RIDER 2 GM/50 ML PREMIX IV ONE (11:54)
[2021-03-09] MEDS: ALBUTEROL/IPRATROPIUM 3 ML NEB RESP TX SCH ×2 (15:00→19:21)
[2021-03-09] MEDS ORDERED: ALUMINUM/MAGNES/SIMETH MAX STR 30 ML UDCUP PO PRN (18:00)
[2021-03-09] MEDS ORDERED: DOCUSATE SODIUM 100 MG CAPSULE PO PRN (18:01)
[2021-03-09] MEDS: BISACODYL 5 MG TABLET PO PRN (21:38)
[2021-03-09] MEDS: APIXABAN 2.5 MG TABLET PO SCH (21:39)
[2021-03-09] MEDS: ONDANSETRON 4 MG/2 ML VIAL IV PRN (21:40)
[2021-03-10] MEDS: ALBUTEROL/IPRATROPIUM 3 ML NEB RESP TX SCH ×3 (00:38→13:39)
[2021-03-10 05:15] LABS: Eosinophils # 0.7 10*3/uL (0.0-0.87); Eosinophils % 16.5 % (0.00-10.9); Hematocrit 29.1 VOL% (35.7-47.0); Hemoglobin 9.1 GM/DL (12.0-16.0); Immature Granulocytes % 0.2 %; Immature Granulocytes Absolute 0.01 #; Lymphocytes # 1.2 10*3/uL (1.4-4.0); Lymphocytes % 29.2 % (21.3-54.2); Mean Corpuscular HGB Conc 31.3 GM/DL (32-36); Mean Corpuscular Volume 92.7 FL (87-102); Mean Platelet Volume 9.6 FL (9.6-12.0); Monocytes % 12.9 % (1.7-12.7); Neutrophils % 40.2 % (38.7-73.9); Platelet Count 212 T/CUMM (130-400); Red Blood Count 3.14 MC/CUMM (3.8-5.5); Red Cell Distribution Width 15.7 % (9.3-17.3); White Blood Count 4.1 T/CUMM (4-12)
[2021-03-10 05:43] LABS: Band Neutrophils 1 % (0-10); Calcium 8.5 MG/DL (8.5-10.1); Eosinophils 20 % (0-10); Lymphocytes 34 % (20-55); Osmolality,Calculated 279.4 MOS/KG (273-304); Potassium 4.1 MMOL/L (3.5-5.1); Segmented Neutrophils 30 % (50-85); Total Cells Counted 100
[2021-03-10 05:44] LABS: Atypical Lymphocytes Few; Hypochromasia 1+; Microcytosis 1+; Ovalocytes Few
[2021-03-10] MEDS: VENLAFAXINE XR 75 MG CAPSULE PO SCH (10:39)
[2021-03-10] MEDS: PANTOPRAZOLE 40 MG TABLET PO SCH (10:39)
[2021-03-10] MEDS: APIXABAN 2.5 MG TABLET PO SCH (10:39)
[2021-03-10] MEDS: SOTALOL 80 MG TABLET PO SCH (10:40)
[2021-03-10] MEDS: FERROUS SULFATE 325 MG TABLET PO SCH (10:50)
[2021-03-10] MEDS: PREGABALIN 25 MG CAPSULE PO SCH (10:50)
[2021-03-10] MEDS: MAGNESIUM OXIDE 400 MG TABLET PO SCH (10:50)
[2021-03-10] MEDS: LEVOFLOXACIN INJ 500 MG/100 ML PREMIX IV SCH (10:51)
[2021-03-10] MEDS: ASCORBIC ACID 500 MG TABLET PO SCH (10:51)
[2021-03-10] MEDS: POLYETHYLENE GLYCOL POWDER 17 GM PACK PO SCH (10:51)
[2021-03-10] MEDS: ONDANSETRON 4 MG/2 ML VIAL IV PRN ×2 (10:52→14:46)
[2021-03-10] MEDS: NYSTATIN CREAM 15 GM TUBE TOP SCH (11:26)
[2021-03-10] MEDS: oxyCODONE IR 5 MG TABLET PO PRN (14:46)
[2021-03-10 16:34] VITALS: BP 142/65
== END 2021-03-10 17:57 | DRG 308 ==
LOC: EDUNIT# → EDBD → N.ED 14:46 → N.EDINP 14:46 → N.TELEN 03-01 17:48 → SUATTDRO 03-02 10:03
PROVIDERS: ADMIT Internal Medicine; ATTEND Internal Medicine Nephrology